=== PATIENT | female | born 1980 | race Caucasian/White ===

== ENCOUNTER 2020-08-27 19:19 | Emergency (ER) | payer OTHER ==
[~2020-08-27 19:19] MED LIST: WARF-31 PO
[2020-08-27 21:53] VITALS: BP 121/87
== END 2020-08-27 23:04 | disposition left against medical advice (07) ==
LOC: ER 19:19
DX: R43.8 Other disturbances of smell and taste (principal); Z53.21 Procedure and treatment not carried out due to patient leaving prior to being seen by health care provider

== ENCOUNTER 2020-08-29 10:45 | Emergency (ER) | payer OTHER ==
[~2020-08-29] VITALS: Ht 160 cm; Wt 79.0 kg
[2020-08-29 11:20] VITALS: BP 133/82
--- NOTE | 2020-08-29 11:36 | PHYS DOC ---
Past Medical History Past Medical History: Seizure Additional Past Medical Histor: BLOOD CLOTS (MEKA RIZVI Nieves DRYWALL STRIPPER HELPER) Past Surgical History: Other Additional Past Surgical Histo: CYST REMOVAL FROM VOICE BOX WITH REMOVAL OF VOCAL CORDS (MEKA RIZVI Nieves DRYWALL STRIPPER HELPER) Smoking Status: Current Every Day Smoker Alcohol Use: None Drug Use: None (MEKA RIZVI Nieves DRYWALL STRIPPER HELPER) General Adult EDM: Chief Complaint: OTHER COMPLAINTS HPI: HPI: Patient is a 39 year old female patient presenting to the ED today with loss of smell, symptoms began on Sunday which is 3 days ago. Daughter also has same symptoms. Patient denies any other complaints (ALVAROJerardoMEKA Pickett DRYWALL STRIPPER HELPER) Review of Systems: Review of Systems: Constitutional: Denies fever or chills. [] Eyes: Denies change in visual acuity. [] HENT: Reports loss of smell. Denies nasal congestion or sore throat. [] Respiratory: Denies cough or shortness of breath. [] Cardiovascular: Denies chest pain or edema. [] GI: Denies abdominal pain, nausea, vomiting, bloody stools or diarrhea. [] : Denies dysuria. [] Musculoskeletal: Denies back pain or joint pain. [] Integument: Denies rash. [] Neurologic: Denies headache, focal weakness or sensory changes. [] ] Psychiatric: Denies depression or anxiety. [] (ALVAROMEKA Kurtz DRYWALL STRIPPER HELPER) Heart Score: C/O Chest Pain: N/A Risk Factors: Risk Factors: DM, Current or recent (<one month) smoker, HTN, HLP, family history of CAD, obesity. Risk Scores: Score 0 - 3: 2.5% MACE over next 6 weeks - Discharge Home Score 4 - 6: 20.3% MACE over next 6 weeks - Admit for Clinical Observation Score 7 - 10: 72.7% MACE over next 6 weeks - Early Invasive Strategies (MEKA RIZVI DRYWALL STRIPPER HELPER) Allergies: Allergies: Allergies Coded Allergies Type Severity Reaction Last Updated Verified Penicillins Allergy Mild HIVES, TOLERATES CEFEPIME 12/12/16 Yes (MORISMEKA VICTOR DRYWALL STRIPPER HELPER) Physical Exam: PE: Constitutional: Well developed, well nourished, no acute distress, non-toxic appearance. [] HENT: Normocephalic, atraumatic, bilateral external ears normal, oropharynx moist, no oral exudates, nose normal. [] Eyes: PERRLA, EOMI, conjunctiva normal, no discharge. [] Neck: Normal range of motion, no tenderness, supple, no stridor. [] Cardiovascular:Heart rate regular rhythm, no murmur [] Lungs & Thorax: Bilateral breath sounds clear to auscultation [] Abdomen: Bowel sounds normal, soft, no tenderness, no masses, no pulsatile masses. [] Skin: Warm, dry, no erythema, no rash. [] Back: No tenderness, no CVA tenderness. [] Extremities: No tenderness, no cyanosis, no clubbing, ROM intact, no edema. [] Neurologic: Alert and oriented X 3, normal motor function, normal sensory function, no focal deficits noted. [] Psychologic: Affect normal, judgement normal, mood normal. [] (MEKA RIZVI APRN) Current Patient Data: Vital Signs: Vital Signs Date Time Temp Pulse Resp B/P (MAP) Pulse Ox O2 Delivery O2 Flow Rate FiO2 08/29/20 11:20 98.1 73 16 133/82 (98) 96 Room Air 98.1 (MEKA RIZVI APRN) EKG: EKG: [] (MEKA RIZVI APRN) Radiology/Procedures: Radiology/Procedures: [] (MEKA RIZVI APRN) Course & Med Decision Making: Course & Med Decision Making Pertinent Labs and Imaging studies reviewed. (See chart for details) This is a 39-year-old female patient presenting to the ED today with loss of smell, symptoms began 3 days ago. Patient was tested for COVID-19. Quarantine measures discussed. Return precautions provided. (MEKA RIZVI APRN) Dragon Disclaimer: Dragon Disclaimer: This electronic medical record was generated, in whole or in part, using a voice recognition dictation system. (MEKA RIZVI APRN) Departure Departure Impression: Primary Impression: Anosmia Disposition: 01 HOME / SELF CARE / HOMELESS Condition: STABLE Referrals: PROSPER SORENSON (PCP) follow up in 1-2 weeks Patient Instructions: Upper Respiratory Infection, Child Additional Instructions: You were tested for COVID-19, please quarantine yourself until you get results from us. Maintain good hand hygiene, you can take Tylenol or Motrin for pain or fever. Follow-up with your doctor in 1 to 2 weeks, come back to the ED at any point symptoms worsen Attending Signature Attending Signature I have reviewed the PA/MICROBIOLOGICAL LAB TECHNICIAN's note and plan of care. I was available for consultation as needed during the patient's visit in the emergency department. I agree with the clinical impression, plan, and disposition. (DELFIN VINCENT DO) MEKA RIZVI APRN Aug 29, 2020 11:35 DELFIN VINCENT DO Aug 29, 2020 16:52
--- NOTE | 2020-08-30 09:10 | NUR ---
IP: Informed pt of positive covid test and the need to quarantine for 10 days. Pt verbalized understanding.
== END 2020-08-29 11:45 | disposition home or self-care (01) ==
LOC: ER 10:45
DX: U07.1 COVID-19 (principal); R43.0 Anosmia; F17.200 Nicotine dependence, unspecified, uncomplicated; Z88.0 Allergy status to penicillin
CPT/HCPCS: 99283; U0003; U0005

== ENCOUNTER 2020-12-28 06:53 | Emergency (ER) | payer OTHER ==
[~2020-12-28] VITALS: Ht 160 cm; Wt 83.9 kg
--- NOTE | 2020-12-28 07:26 | PHYS DOC ---
Past Medical History Past Medical History: Seizure Additional Past Medical Histor: BLOOD CLOTS Past Surgical History: Other Additional Past Surgical Histo: CYST REMOVAL FROM VOICE BOX WITH REMOVAL OF VOCAL CORDS Smoking Status: Current Every Day Smoker Alcohol Use: None Drug Use: None General Adult EDM: Chief Complaint: ANIMAL BITE HPI: HPI: Patient is a 40 year old female who presents for evaluation of dog bite to her right forearm, as well as abrasions from scratches from dog claws of her right forearm. This injury occurred shortly prior to arrival. She was outside putting away bags of leaves in her yard. She reports that there are multiple animals, who are reportedly domestic animals, around the neighborhood frequently. She reports that a larger dog was attacking the smaller dog, so she reached in to try to "save" the smaller dog. She was bitten in the process. The dogs ran out. She is unsure of who this dog belonged to. He does not describe an unprovoked bite or injury. She is unsure of tetanus status. She denies numbness or tingling. No severe pain. No weakness. No other injuries reported. Nursing staff contacted police in the area. Review of Systems: Review of Systems: Constitutional: Denies fever or chills. [] Respiratory: Denies cough or shortness of breath. [] Cardiovascular: Denies chest pain or edema. [] GI: Denies abdominal pain, nausea, vomiting Musculoskeletal: Right forearm pain at injury sites. Integument: Abrasions of the dorsal right forearm, laceration from dog bite of the volar right forearm. Neurologic: Denies headache, focal weakness or sensory changes. [] Psychiatric: Anxiety as it pertains to current injury. [] Heart Score: C/O Chest Pain: No Risk Factors: Risk Factors: DM, Current or recent (<one month) smoker, HTN, HLP, family history of CAD, obesity. Risk Scores: Score 0 - 3: 2.5% MACE over next 6 weeks - Discharge Home Score 4 - 6: 20.3% MACE over next 6 weeks - Admit for Clinical Observation Score 7 - 10: 72.7% MACE over next 6 weeks - Early Invasive Strategies Allergies: Allergies: Allergies Coded Allergies Type Severity Reaction Last Updated Verified Penicillins Allergy Mild HIVES, TOLERATES CEFEPIME 12/12/16 Yes Physical Exam: PE: Constitutional: Well developed, well nourished, no acute distress, non-toxic appearance. [] HENT: Normocephalic, atraumatic Neck: Trachea is midline. Cardiovascular: +2 radial pulse of the right upper extremity, cap refill is brisk, warm and well perfused. Lungs & Thorax: Respirations are nonlabored. Skin: She has linear superficial abrasions on her mid, dorsal right forearm. She has an open, subcutaneous, round and jagged bite wound/laceration of her mid volar right forearm. Minimal oozing. No visible foreign body. No gross visible contamination. There is subcutaneous fat extruding from the wound. Extremities: Abrasions and laceration/bite and claw wounds of the right forearm, as detailed above. Compartments are soft. Full painless active and passive range of motion of the right forearm, right wrist, right elbow. No wrist drop. +2 radial pulse. Cap refill is brisk. No visible muscle belly involvement. No visible gross foreign body or visible gross contamination of the wound. There is mild soft tissue swelling around the lesions/wounds. No bony tenderness or bony deformity. No palpable crepitus or step-offs. Neurologic: Alert and oriented X 3, normal motor function, normal sensory function, no focal deficits noted. Full orthodontist assistant strength noted. Psychologic: She is mildly anxious but is cooperative. [] EKG: EKG: [] Radiology/Procedures: Radiology/Procedures: IMAGING REPORT Signed PATIENT: JAIR WALL ACCOUNT: [id number] : 1980 LOCATION: ER AGE: 40 SEX: F EXAM STATUS: REG ER ORD. PHYSICIAN: SELVIN LOVE DO REASON: dog bite, multiple puncture wounds and abrasions to forearm PROCEDURE: FOREARM RIGHT XR FOREARM_RIGHT 2 VIEWS DATE: 12/28/2020 7:42 AM INDICATION: dog bite, multiple puncture wounds and abrasions to forearm COMPARISON: None. FINDINGS: Bones: There is no evidence of acute fracture. No joint dislocation is noted. Miscellaneous: No radiopaque foreign body. IMPRESSION: No acute fracture or radiopaque foreign body. Electronically signed by: Debra Rios MD (12/28/2020 8:00 AM) [id number] DICTATED and SIGNED BY: DEBRA RIOS MD DATE: 12/28/20 [id number] Course & Med Decision Making: Course & Med Decision Making Pertinent Labs and Imaging studies reviewed. (See chart for details) P.o. doxycycline is given here. Tetanus is updated. X-ray reveals no fracture or foreign body. Her wounds are cleaned. I performed local anesthesia, wound debridement, cleansing and copious irrigation of her laceration/bite site. Though the wound is open, subcutaneous, given that it is a dog bite, I explained that I do not feel that it is appropriate to close this formally, even loosely. The wound is currently hemostatic. I explained that frequently dog bites are given antibiotic prophylaxis, especially in areas of slightly higher risk for wound infection, such as the extremities. I explained my recommendation to allow the wound to go by secondary intention. She understands this. I have given her instructions for home care and wound care. Strict return precautions are given. She verbalizes understanding. Abimael Disclaimer: Abimael Disclaimer: This electronic medical record was generated, in whole or in part, using a voice recognition dictation system. Departure Departure Impression: Primary Impression: Open wound of right forearm due to dog bite Additional Impression: Abrasion of right forearm Qualified Codes: S50.811A - Abrasion of right forearm, initial encounter Disposition: 01 HOME / SELF CARE / HOMELESS Condition: STABLE Referrals: NO PCP (PCP) Patient Instructions: Animal Bite, Laceration Care, Adult Additional Instructions: Take the full course of antibiotics. Keep the wound clean and dry, rinse with soapy water for cleaning. Pat dry. Return to the ER immediately for yellow- green wound drainage, severe pain, fever 100.4 or higher, severe redness, red streaks or any other concerns. Follow-up with your primary care doctor in the next 5 to 7 days for wound check. Scripts Doxycycline Hyclate (DOXYCYCLINE HYCLATE) 100 Mg Tablet 1 TAB PO BID for 7 Days, #14 TAB Prov: SELVIN LOVE DO 12/28/20 Hydrocodone Bit/Acetaminophen (HYDROCODONE-APAP 5-325 ) 1 Tab Tablet 1 TAB PO PRN Q6HRS PRN for PAIN, #15 TAB 0 Refills Prov: SELVIN LOVE DO 12/28/20 SELVIN LOVE DO Dec 28, 2020 07:26
[2020-12-28 07:38] VITALS: BP 124/71
[2020-12-28] MEDS ORDERED: LIDOCAINE 1%/EPI 1:100,000 20 ML VIAL. INJ ONE (07:45)
[2020-12-28] MEDS ORDERED: DOXYCYCLINE HYCLATE 100 MG TABLET PO ONE (07:45)
[2020-12-28] MEDS ORDERED: TETANUS AND DIPHTHERIA TOX/PF 0.5 ML DISP.SYRIN. VAX IM ONE (07:45)
--- NOTE | 2020-12-28 08:02 | RAD ---
XR FOREARM_RIGHT 2 VIEWS DATE: 12/28/2020 7:42 AM INDICATION: dog bite, multiple puncture wounds and abrasions to forearm COMPARISON: None. FINDINGS: Bones: There is no evidence of acute fracture. No joint dislocation is noted. Miscellaneous: No radiopaque foreign body. IMPRESSION: No acute fracture or radiopaque foreign body. Electronically signed by: Varinder Luna MD (12/28/2020 8:00 AM) [id number]
[2020-12-28] MEDS ORDERED: HYDR-2761 PO (08:23)
[2020-12-28] MEDS ORDERED: DOXY100T PO (08:23)
== END 2020-12-28 08:30 | disposition home or self-care (01) ==
LOC: ER 06:53
DX: S50.811A Abrasion of right forearm, initial encounter (principal); F17.200 Nicotine dependence, unspecified, uncomplicated; Z88.0 Allergy status to penicillin; W54.0XXA Bitten by dog, initial encounter; Y93.89 Activity, other specified; Y92.89 Other specified places as the place of occurrence of the external cause; Y99.8 Other external cause status
CPT/HCPCS: 73090; 90471; 90714; 99283; J3490; 12001

== ENCOUNTER 2021-05-23 17:37 | Inpatient (IN) | payer OTHER ==
[~2021-05-23] VITALS: Ht 160 cm; Wt 81.8 kg
[~2021-05-23 17:37] MED LIST changes: +DOXY100T PO; +HYDR-2761 PO
[2021-05-23] MEDS ORDERED: MORPHINE SULFATE 4 MG/ML INJ. IVP ONE (20:15)
[2021-05-23] MEDS ORDERED: RABIES VIRUS VACC PF 2.5 UNIT / 1 ML VIAL. VAX IM ONE (20:15)
[2021-05-23] MEDS ORDERED: VANCOMYCIN 1.5 GM in IV NORMAL SALINE 500ML BAG 500 ML IV ONE (20:15)
[2021-05-23] MEDS ORDERED: cefTRIAXone IV Push 1 GM VIAL. IVP ONE (20:15)
[2021-05-23] MEDS ORDERED: ONDANSETRON PF 4 MG/2 ML VIAL. IVP ONE (20:15)
[2021-05-23] MEDS ORDERED: IV NORMAL SALINE 1000ML BAG 1,000 ML IV ONE (20:15)
[2021-05-23] MEDS ORDERED: RABIES IMMUNE GLOBULIN PF 300 UNIT/ML 5ML VIAL VAX IM ONE (20:30)
[2021-05-23] MEDS ORDERED: ACETAMINOPHEN 500 MG TABLET PO ONE (20:45)
--- NOTE | 2021-05-23 20:53 | RAD ---
Left femur AP and lateral views. HISTORY: Infected dog bite AP and lateral views were taken of the left femur. There is no opaque foreign body. There is no abnor mal soft tissue gas. There is no fracture or bony destructive process in the left femur. There is a s tent in a iliac vessel on the left. IMPRESSION: 1. No opaque foreign body noted. 2. No abnormal gas noted in the soft tissues. 3. No acute osseous abnormality left femur. Electronically signed by: Oscar Sosa MD (05/23/2021 8:50 PM) [facility] [place]
--- NOTE | 2021-05-23 21:43 | RAD ---
Exam: Ultrasound bilateral lower extremity arterial duplex Indication: Vasculopathy, no palpable pulses Technique: Real-time grayscale and color Doppler images of the bilateral lower external were obtained by the department clinical product manager. Comparisons: None FINDINGS: Peak systolic velocities as follows: Right: OCEANOGRAPHER GEOLOGICAL: 179 DFA: 97 Proximal SFA: 97 Mid SFA: 123 Distal SFA: 122 Popliteal: 66 Proximal ASSISTANT STORE MANAGER: 67 Distal ASSISTANT STORE MANAGER: 57 Peroneal: 50 JOSE: 69 DPA: 44 Left: OCEANOGRAPHER GEOLOGICAL: 120 DFA: 75 Proximal SFA: 81 Mid SFA: 80 Distal SFA: 85 Popliteal: 59 Proximal ASSISTANT STORE MANAGER: 42 Distal ASSISTANT STORE MANAGER: 37 Peroneal: 48 JOSE: 73 DPA: 27 Triphasic waveforms noted throughout the bilateral lower extremities IMPRESSION: Patent bilateral lower extremity arterial vasculature without evidence of stenosis. Electronically signed by: Apolonia Gresham MD (05/23/2021 9:41 PM) [facility]
[2021-05-23 21:54] LABS: BASO # 0.1 x10^3/uL (0.0-0.2); BASO % 0 % (0-3); EOS % 0 % (0-3); HEMATOCRIT 41.9 % (36.0-47.0); HEMOGLOBIN 14.4 g/dL (12.0-15.5); LYMPH % 7 % (24-48); MEAN CORPUSCULAR HEMOGLOBIN 32 pg (25-35); MEAN CORPUSCULAR HGB CONC 34 g/dL (31-37); MEAN CORPUSCULAR VOLUME 93 fL (79-100); MONO # 0.6 x10^3/uL (0.0-1.1); MONO % 4 % (0-9); NEUT # 13.1 x10^3/uL (1.8-7.7); NEUT % 88 % (31-73); PLATELET COUNT 201 x10^3/uL (140-400); RED CELL DISTRIBUTION WIDTH 13.1 % (11.5-14.5); WHITE BLOOD COUNT 14.8 x10^3/uL (4.0-11.0)
[2021-05-23 22:04] LABS: CALCIUM 8.6 mg/dL (8.5-10.1); CREATININE 0.9 mg/dL (0.6-1.0); POTASSIUM 4.1 mmol/L (3.5-5.1); PROTHROMBIN TIME PATIENT 14.1 SEC (11.7-14.0)
[2021-05-23 22:10] LABS: ALBUMIN 3.8 g/dL (3.4-5.0); ALBUMIN/GLOBULIN RATIO 0.9 (1.0-1.7); C-REACTIVE PROTEIN 68.5 mg/L (0-3.3); TOTAL BILIRUBIN 0.5 mg/dL (0.2-1.0)
[2021-05-23 23:47] LABS: BARBITURATES NEG (NEG); BENZODIAZEPINES NEG (NEG); CANNABINOIDS NEG (NEG); COCAINE NEG (NEG); METHADONE NEG (NEG); OPIATES NEG (NEG); PHENCYCLIDINE NEG (NEG)
[2021-05-23 23:51] LABS: AMPHETAMINE/METHAMPHETAMINE NEG (NEG)
[2021-05-23 23:54] LABS: BACTERIA,URINE FEW /HPF (0-FEW); RBC,URINE OCC /HPF (0-2); WBC,URINE OCC /HPF (0-4)
[2021-05-24] MEDS ORDERED: RABIES IMMUNE GLOBULIN PF 300 UNIT / 1 ML VIAL. VAX IM ONE
--- NOTE | 2021-05-24 00:12 | PHYS DOC ---
Past Medical History Past Medical History: Seizure Additional Past Medical Histor: BLOOD CLOTS ,DVT'S AND PE'S Past Surgical History: Other Additional Past Surgical Histo: CYST REMOVAL FROM VOICE BOX WITH REMOVAL OF VOCAL CORDS Smoking Status: Current Every Day Smoker Alcohol Use: None Drug Use: None Adult General Chief Complaint Chief Complaint: ANIMAL BITE HPI HPI The patient is a 40-year-old female with a history of tobacco abuse and peripheral vascular disease who presents for evaluation of a dog bite to the left posterior distal thigh occurring yesterday. Dog was not known to the patient. Patient's tetanus is up-to-date. Discomfort to the area was initially minimal and patient did not think much of the injury and did not seek care yesterday but today woke up with significantly worsened discomfort, redness and swelling to the site. Febrile and mildly tachycardic here. No vomiting, nasal congestion/rhinorrhea, cough, sore throat, shortness of breath or chest pain of any kind, abdominal pain of any kind, flank pain, midline back pain, dysuria, hematuria, polyuria or oliguria, changes in bowel habits, weakness, numbness or tingling to distal legs. Review of Systems Review of Systems A 12 point review of systems was completed and was negative except where noted in HPI above. Current Medications Current Medications Current Medications Medications (Trade) Dose Ordered Sig/Emmy Start Time Stop Time Status Last Admin Dose Admin Acetaminophen (Tylenol) 1,000 mg 1X ONCE 05/23/21 20:45 05/23/21 20:46 DC Ceftriaxone Sodium (Rocephin) 1 gm 1X ONCE 05/23/21 20:15 05/23/21 20:22 DC Metronidazole 100 ml @ 100 mls/hr 1X ONCE 05/23/21 20:15 05/23/21 21:14 DC Morphine Sulfate (Morphine Sulfate) 4 mg 1X ONCE 05/23/21 20:15 05/23/21 20:22 DC 05/23/21 22:26 4 MG Ondansetron HCl (Zofran) 4 mg 1X ONCE 05/23/21 20:15 05/23/21 20:22 DC Rabies Immune Globulin (HyperRAB 300 UNIT/ML 5ML VIAL) 5 ml ONCE ONCE 05/23/21 20:30 05/23/21 20:31 DC Rabies Immune Globulin (HyperRAB 300 UNIT/ML VIAL) 1 ml ONCE ONCE 05/24/21 00:00 4/12/22 00:01 Rabies Vaccine (Imovax Rabies 2.5 Unit / ml) 1 ml ONCE ONCE 05/23/21 20:15 05/23/21 20:18 DC 05/23/21 23:54 1 ML Sodium Chloride 1,000 ml @ 1,000 mls/hr 1X ONCE 05/23/21 20:15 05/23/21 21:14 DC Vancomycin HCl 1.5 gm/Sodium Chloride 500 ml @ 250 mls/hr 1X ONCE 05/23/21 20:15 05/23/21 22:14 DC 05/23/21 22:40 250 MLS/HR Allergies Allergies Allergies Coded Allergies Type Severity Reaction Last Updated Verified Penicillins Allergy Mild HIVES, TOLERATES CEFEPIME 12/12/16 Yes Physical Exam Physical Exam 40-year-old female appearing nontoxic and in no acute distress. Head is normocephalic and atraumatic. Neck is supple and nontender. Oropharynx is moist. Lungs are clear to auscultation at all stations. There is a normal S1 and S2 without rubs or gallops and capillary refill is appropriate, less than 2 seconds globally. No murmurs. Abdomen is soft, nontender and nondistended. Skin is warm and dry without cyanosis, clubbing or edema. Psychiatrically, the patient demonstrates appropriate mood and affect and is alert. Evaluation of the extremities reveals large indurated erythematous tender area to the distal left posterior thigh with some central puncture wounds consistent with dog bite. Erythematous area is about 10 cm in diameter. No fluctuance suggestive of an abscess noted to the site. No discomfort with range of any joint of the affected extremity. All compartments of the thigh and lower leg are soft. No fusiform swelling of the thigh. Left lower extremity with normal capillary refill, less than 2 seconds, and normal strength and sensation but nonpalpable pulse. Current Patient Data Vital Signs Vital Signs Date Time Temp Pulse Resp B/P (MAP) Pulse Ox O2 Delivery O2 Flow Rate FiO2 05/23/21 22:26 14 93 Room Air 05/23/21 19:40 100.9 106 116/63 (80) 100.9 Lab Values Laboratory Tests Test 05/23/21 21:40 05/23/21 23:30 White Blood Count 14.8 x10^3/uL (4.0-11.0) H Red Blood Count 4.50 x10^6/uL (3.50-5.40) Hemoglobin 14.4 g/dL (12.0-15.5) Hematocrit 41.9 % (36.0-47.0) Mean Corpuscular Volume 93 fL (79-100) Mean Corpuscular Hemoglobin 32 pg (25-35) Mean Corpuscular Hemoglobin Concent 34 g/dL (31-37) Red Cell Distribution Width 13.1 % (11.5-14.5) Platelet Count 201 x10^3/uL (140-400) Neutrophils (%) (Auto) 88 % (31-73) H Lymphocytes (%) (Auto) 7 % (24-48) L Monocytes (%) (Auto) 4 % (0-9) Eosinophils (%) (Auto) 0 % (0-3) Basophils (%) (Auto) 0 % (0-3) Neutrophils # (Auto) 13.1 x10^3/uL (1.8-7.7) H Lymphocytes # (Auto) 1.0 x10^3/uL (1.0-4.8) Monocytes # (Auto) 0.6 x10^3/uL (0.0-1.1) Eosinophils # (Auto) 0.0 x10^3/uL (0.0-0.7) Basophils # (Auto) 0.1 x10^3/uL (0.0-0.2) Platelet Estimate Pending Erythrocyte Sedimentation Rate 20 (0-25) Prothrombin Time 14.1 SEC (11.7-14.0) H Prothrombin Time INR 1.1 (0.8-1.1) Activated Partial Thromboplast Time 32 SEC (24-38) Sodium Level 137 mmol/L (136-145) Potassium Level 4.1 mmol/L (3.5-5.1) Chloride Level 102 mmol/L (98-107) Carbon Dioxide Level 23 mmol/L (21-32) Anion Gap 12 (6-14) Blood Urea Nitrogen 14 mg/dL (7-20) Creatinine 0.9 mg/dL (0.6-1.0) Estimated GFR (Cockcroft-Gault) 69.0 BUN/Creatinine Ratio 16 (6-20) Glucose Level 89 mg/dL (70-99) Lactic Acid Level 1.1 mmol/L (0.4-2.0) Calcium Level 8.6 mg/dL (8.5-10.1) Total Bilirubin 0.5 mg/dL (0.2-1.0) Aspartate Amino Transferase (AST) 16 U/L (15-37) Alanine Aminotransferase (ALT) 17 U/L (14-59) Alkaline Phosphatase 66 U/L (46-116) C-Reactive Protein, Quantitative 68.5 mg/L (0-3.3) H Total Protein 8.0 g/dL (6.4-8.2) Albumin 3.8 g/dL (3.4-5.0) Albumin/Globulin Ratio 0.9 (1.0-1.7) L Procalcitonin < 0.10 ng/mL (0.00-0.10) Ethyl Alcohol Level < 10 mg/dL (0-10) Urine Collection Type Unknown Urine Color (Auto) Light yellow Urine Turbidity Clear Urine pH (Auto) 6.0 (<5.0-8.0) Urine Specific [place] 1.027 (1.000-1.030) Urine Protein (Auto) Negative mg/dL (Negative) Urine Glucose (Auto)(UA) Negative mg/dL (Negative) Urine Ketones (Auto) Negative mg/dL (Negative) Urine Blood (Auto) Small (Negative) Urine Nitrite Negative (Negative) Urine Bilirubin (Auto) Negative (Negative) Urine Urobilinogen (Auto) Normal mg/dL (Normal) Urine Leukocyte Esterase (Auto) Negative (Negative) Urine RBC Occ /HPF (0-2) Urine WBC Occ /HPF (0-4) Urine Squamous Epithelial Cells Mod /LPF Urine Bacteria Few /HPF (0-FEW) Urine Mucus Slight /LPF Urine Opiates Screen Neg (NEG) Urine Methadone Screen Neg (NEG) Urine Barbiturates Neg (NEG) Urine Phencyclidine Screen Neg (NEG) Urine Amphetamine/Methamphetamine Neg (NEG) Urine Benzodiazepines Screen Neg (NEG) Urine Cocaine Screen Neg (NEG) Urine Cannabinoids Screen Neg (NEG) Urine Ethyl Alcohol Neg (NEG) Laboratory Tests 05/23/21 21:40 Laboratory Tests 05/23/21 21:40 EKG EKG [] Radiology/Procedures Radiology/Procedures Left femur AP and lateral views. HISTORY: Infected dog bite AP and lateral views were taken of the left femur. There is no opaque foreign body. There is no abnormal soft tissue gas. There is no fracture or bony destructive process in the left femur. There is a stent in a iliac vessel on the left. IMPRESSION: 1. No opaque foreign body noted. 2. No abnormal gas noted in the soft tissues. 3. No acute osseous abnormality left femur. Electronically signed by: Oscar Sosa MD (05/23/2021 8:50 PM) [facility] DICTATED and SIGNED BY: OSCAR SOSA MD DATE: 05/23/212048 Exam: Ultrasound bilateral lower extremity arterial duplex Indication: Vasculopathy, no palpable pulses Technique: Real-time grayscale and color Doppler images of the bilateral lower external were obtained by the department desk pen set assembler. Comparisons: None FINDINGS: Peak systolic velocities as follows: Right: CUSTOMER EXPERIENCE MANAGER: 179 DFA: 97 Proximal SFA: 97 Mid SFA: 123 Distal SFA: 122 Popliteal: 66 Proximal GREASE BUFFER: 67 Distal GREASE BUFFER: 57 Peroneal: 50 JOSE: 69 DPA: 44 Left: CUSTOMER EXPERIENCE MANAGER: 120 DFA: 75 Proximal SFA: 81 Mid SFA: 80 Distal SFA: 85 Popliteal: 59 Proximal GREASE BUFFER: 42 Distal GREASE BUFFER: 37 Peroneal: 48 JOSE: 73 DPA: 27 Triphasic waveforms noted throughout the bilateral lower extremities IMPRESSION: Patent bilateral lower extremity arterial vasculature without evidence of stenosis. Electronically signed by: Apolonia Irizarry MD (05/23/2021 9:41 PM) [facility] DICTATED and SIGNED BY: APOLONIA IRIZARRY MD DATE: 05/23/212133 Course & Med Decision Making Course & Med Decision Making Work-up as above. Patient septic from dog bite yesterday. Compartments of the affected extremity are all soft. Arterial Doppler studies unremarkable to BLEs. Patient has received rabies immunoglobulin and first vaccination. Given rapidly enlarging area of soft tissue infection associated with a dog bite sustained yesterday in this vasculopathic smoker, have covered with vancomycin, Rocephin and Flagyl (PCN allergy so no Augmentin) and will bring in for further care. Dr. Olivas graciously accepts. Abimael Disclaimer Abimael Disclaimer This electronic medical record was generated, in whole or in part, using a voice recognition dictation system. Departure Departure Impression: Primary Impression: Cellulitis of left thigh Additional Impressions: Acute sepsis Dog bite of left thigh with infection Disposition: ADMITTED INPATIENT Condition: GUARDED Referrals: NO PCP (PCP) Problem Qualifiers Additional Impressions: Dog bite of left thigh with infection Encounter type: initial encounter Qualified Codes: S71.152A - Open bite, left thigh, initial encounter; L08.9 - Local infection of the skin and subcutaneous tissue, unspecified; W54.0XXA - Bitten by dog, initial encounter DIVYA BOURGEOIS MD May 24, 2021 00:12
[2021-05-24] MEDS ORDERED: ONDANSETRON PF 4 MG/2 ML VIAL. IVP PRN ×2 (00:15→14:15)
[2021-05-24 00:25] LABS: U PREG PATIENT NEGATIVE (NEG)
[2021-05-24] MEDS ORDERED: KETOROLAC 15 MG/ML VIAL. IVP ONE (00:30)
[2021-05-24] MEDS ORDERED: MORPHINE SULFATE 2 MG/ML INJ. IVP ONE (00:30)
[2021-05-24] MEDS: IV NORMAL SALINE 1000ML BAG 1,000 ML IV SCH ×3 (00:30→23:10)
[2021-05-24] MEDS ORDERED: cefTRIAXone IV Push 1 GM VIAL. IVP ONE (00:47)
[2021-05-24 02:15] VITALS: BP 92/59
[2021-05-24] MEDS: MORPHINE SULFATE 2 MG/ML INJ. IVP PRN ×4 (02:59→21:05)
[2021-05-24 07:00] VITALS: BP 101/61
--- NOTE | 2021-05-24 09:55 | NUR ---
SW following. Discussed with RN, pt from home, room air, regular diet. Surgery following. RN advised no SW needs at this time. SW will continue to follow.
--- NOTE | 2021-05-24 10:14 | PDOC2 ---
CONSULT Date of Consult Date of Consult DATE: 05/24/21 TIME: 10:02 Reason for Consult Reason for Consult: cellulitis Referring Physician Referring Physician: ER Identification/Chief Complaint Chief Complaint dog bite Source Source: Chart review, Patient History of Present Illness Reason for Visit: reported dog bite injury 2 days ago. Yesterday became more red, painful. Some drainage had been noted. She is on coumadin for PE hx, she is a smoker. Started rabies vaccine Past Medical History Pulmonary: Pulmonary embolus Heme/Onc: Other (DVT) Past Surgical History Past Surgical History: No pertinent history Family History Family History: Other (noncontributory to current illness ) Social History 1 pack per day ALCOHOL: none Drugs: None Lives: with Family Current Problem List Problem List Problems Medical Problems: (1) Acute sepsis Status: Acute (2) Cellulitis of left thigh Status: Acute (3) Dog bite of left thigh with infection Status: Acute Current Medications Current Medications Current Medications Rabies Vaccine (Imovax Rabies 2.5 Unit / ml) 1 ml ONCE ONCE VAX IM Last administered on 05/23/21at 23:54; Start 05/23/21 at 20:15; Stop 05/23/21 at 20:18; Status DC Rabies Immune Globulin (HyperRAB 300 UNIT/ML 5ML VIAL) 5 ml ONCE ONCE VAX IM Last administered on 05/24/21at 00:03; Start 05/23/21 at 20:30; Stop 05/23/21 at 20:31; Status DC Sodium Chloride 1,000 ml @ 1,000 mls/hr 1X ONCE IV Last administered on 05/24/21at 00:35; Start 05/23/21 at 20:15; Stop 05/23/21 at 21:14; Status DC Morphine Sulfate (Morphine Sulfate) 4 mg 1X ONCE IVP Last administered on 05/23/21at 22:26; Start 05/23/21 at 20:15; Stop 05/23/21 at 20:22; Status DC Ondansetron HCl (Zofran) 4 mg 1X ONCE IVP Last administered on 05/24/21at 00:34; Start 05/23/21 at 20:15; Stop 05/23/21 at 20:22; Status DC Vancomycin HCl 1.5 gm/Sodium Chloride 500 ml @ 250 mls/hr 1X ONCE IV Last administered on 05/23/21at 22:40; Start 05/23/21 at 20:15; Stop 05/23/21 at 22:14; Status DC Ceftriaxone Sodium (Rocephin) 1 gm 1X ONCE IVP Last administered on 05/24/21at 00:48; Start 05/23/21 at 20:15; Stop 05/23/21 at 20:22; Status DC Metronidazole 100 ml @ 100 mls/hr 1X ONCE IV Last administered on 05/24/21at 00:34; Start 05/23/21 at 20:15; Stop 05/23/21 at 21:14; Status DC Acetaminophen (Tylenol) 1,000 mg 1X ONCE PO ; Start 05/23/21 at 20:45; Stop 05/23/21 at 20:46; Status DC Rabies Immune Globulin (HyperRAB 300 UNIT/ML VIAL) 1 ml ONCE ONCE VAX IM Last administered on 05/24/21at 00:02; Start 05/24/21 at 00:00; Stop 05/24/21 at 00 :01; Status DC Ondansetron HCl (Zofran) 4 mg PRN Q8HRS PRN IVP NAUSEA/VOMITING 1ST CHOICE; Start 05/24/21 at 00:15; Stop 05/25/21 at 00:14 Morphine Sulfate (Morphine Sulfate) 2 mg PRN Q2HR PRN IVP SEVERE PAIN 7-10 Last administered on 05/24/21at 07:37; Start 05/24/21 at 00:15; Stop 05/25/21 at 00:14 Sodium Chloride 1,000 ml @ 100 mls/hr Q10H IV Last administered on 05/24/21at 09:41; Start 05/24/21 at 00:30; Stop 05/25/21 at 00:29 Morphine Sulfate (Morphine Sulfate) 2 mg 1X ONCE IVP Last administered on 05/24/21at 00:33; Start 05/24/21 at 00:30; Stop 05/24/21 at 00:31; Status DC Ketorolac Tromethamine (Toradol 15mg Vial) 15 mg 1X ONCE IVP Last administered on 05/24/21at 00:34; Start 05/24/21 at 00:30; Stop 05/24/21 at 00:31; Status DC Ceftriaxone Sodium (Rocephin) 1 gm STK-MED ONCE IVP ; Start 05/24/21 at 00:47; Stop 05/24/21 at 00:47; Status DC Active Scripts Active Doxycycline Hyclate 100 Mg Tablet 1 Tab PO BID 7 Days Hydrocodone-Apap 5-325 (Hydrocodone Bit/Acetaminophen) 1 Tab Tablet 1 Tab PO PRN Q6HRS PRN Reported Warfarin Sodium 5 Mg Tablet Unknown Dose PO DAILY Allergies Allergies: Coded Allergies: Penicillins (Verified Allergy, Mild, HIVES, TOLERATES CEFEPIME, 12/12/16) ROS General: YES: Other (low grade fevers ) PSYCHOLOGICAL ROS: No: Anxiety Eyes: No Blurry vision, No Double vision HEENT: No: Heacaches, Sore Throat Hematological and Lymphatic: YES: Bleeding Problems, Blood Clots Respiratory: No: Cough, Shortness of breath Cardiovascular: No Chest Pain, No Palpitations Gastrointestinal: No Nausea, No Vomiting, No Abdominal Pain Genitourinary: No Hematuria Musculoskeletal: Yes Joint Pain, Yes Muscle Pain Neurological: Yes Impaired Coord/balance; No Numbness/Tingling Skin: Yes Other (see hpi) Physical Exam General: Alert, Oriented X3, Cooperative HEENT: Atraumatic, PERRLA Lungs: Clear to auscultation, Normal air movement Heart: Regular rate, Normal S1, Normal S2 Abdomen: Soft, No tenderness, No hepatosplenomegaly Extremities: No clubbing, No cyanosis Skin: Other (left inner/posterior thigh with erythema, induration, tenderness, central area of darker tissue, no overt eschar, noted punture wounds ) Neuro: Normal speech, Sensation intact Psych/Mental Status: Mental status NL, Mood NL MUSCULOSKELETAL: No deformity, No swelling Vitals VITALS Vital Signs Date Time Temp Pulse Resp B/P (MAP) Pulse Ox O2 Delivery O2 Flow Rate FiO2 05/24/21 08:07 Room Air 05/24/21 07:00 99.0 83 22 101/61 (74) 96 99.0 Labs Labs Laboratory Tests Test 05/23/21 21:40 05/23/21 23:30 05/24/21 00:01 White Blood Count 14.8 x10^3/uL (4.0-11.0) Red Blood Count 4.50 x10^6/uL (3.50-5.40) Hemoglobin 14.4 g/dL (12.0-15.5) Hematocrit 41.9 % (36.0-47.0) Mean Corpuscular Volume 93 fL (79-100) Mean Corpuscular Hemoglobin 32 pg (25-35) Mean Corpuscular Hemoglobin Concent 34 g/dL (31-37) Red Cell Distribution Width 13.1 % (11.5-14.5) Platelet Count 201 x10^3/uL (140-400) Neutrophils (%) (Auto) 88 % (31-73) Lymphocytes (%) (Auto) 7 % (24-48) Monocytes (%) (Auto) 4 % (0-9) Eosinophils (%) (Auto) 0 % (0-3) Basophils (%) (Auto) 0 % (0-3) Neutrophils # (Auto) 13.1 x10^3/uL (1.8-7.7) Lymphocytes # (Auto) 1.0 x10^3/uL (1.0-4.8) Monocytes # (Auto) 0.6 x10^3/uL (0.0-1.1) Eosinophils # (Auto) 0.0 x10^3/uL (0.0-0.7) Basophils # (Auto) 0.1 x10^3/uL (0.0-0.2) Erythrocyte Sedimentation Rate 20 (0-25) Prothrombin Time 14.1 SEC (11.7-14.0) Prothromb Time International Ratio 1.1 (0.8-1.1) Activated Partial Thromboplast Time 32 SEC (24-38) Sodium Level 137 mmol/L (136-145) Potassium Level 4.1 mmol/L (3.5-5.1) Chloride Level 102 mmol/L (98-107) Carbon Dioxide Level 23 mmol/L (21-32) Anion Gap 12 (6-14) Blood Urea Nitrogen 14 mg/dL (7-20) Creatinine 0.9 mg/dL (0.6-1.0) Estimated GFR (Cockcroft-Gault) 69.0 BUN/Creatinine Ratio 16 (6-20) Glucose Level 89 mg/dL (70-99) Lactic Acid Level 1.1 mmol/L (0.4-2.0) Calcium Level 8.6 mg/dL (8.5-10.1) Total Bilirubin 0.5 mg/dL (0.2-1.0) Aspartate Amino Transf (AST/SGOT) 16 U/L (15-37) Alanine Aminotransferase (ALT/SGPT) 17 U/L (14-59) Alkaline Phosphatase 66 U/L (46-116) C-Reactive Protein, Quantitative 68.5 mg/L (0-3.3) Total Protein 8.0 g/dL (6.4-8.2) Albumin 3.8 g/dL (3.4-5.0) Albumin/Globulin Ratio 0.9 (1.0-1.7) Procalcitonin < 0.10 ng/mL (0.00-0.10) Ethyl Alcohol Level < 10 mg/dL (0-10) Urine Collection Type Unknown Urine Color (Auto) Light yellow Urine Turbidity Clear Urine pH (Auto) 6.0 (<5.0-8.0) Urine Specific [place] 1.027 (1.000-1.030) Urine Protein (Auto) Negative mg/dL (Negative) Urine Glucose (Auto)(UA) Negative mg/dL (Negative) Urine Ketones (Auto) Negative mg/dL (Negative) Urine Blood (Auto) Small (Negative) Urine Nitrite Negative (Negative) Urine Bilirubin (Auto) Negative (Negative) Urine Urobilinogen (Auto) Normal mg/dL (Normal) Urine Leukocyte Esterase (Auto) Negative (Negative) Urine RBC Occ /HPF (0-2) Urine WBC Occ /HPF (0-4) Urine Squamous Epithelial Cells Mod /LPF Urine Bacteria Few /HPF (0-FEW) Urine Mucus Slight /LPF Urine Opiates Screen Neg (NEG) Urine Methadone Screen Neg (NEG) Urine Barbiturates Neg (NEG) Urine Phencyclidine Screen Neg (NEG) Urine Amphetamine/Methamphetamine Neg (NEG) Urine Benzodiazepines Screen Neg (NEG) Urine Cocaine Screen Neg (NEG) Urine Cannabinoids Screen Neg (NEG) Urine Ethyl Alcohol Neg (NEG) Urine Test Negative (NEG) Laboratory Tests Test 05/23/21 21:40 05/23/21 23:30 05/24/21 00:01 White Blood Count 14.8 x10^3/uL (4.0-11.0) Red Blood Count 4.50 x10^6/uL (3.50-5.40) Hemoglobin 14.4 g/dL (12.0-15.5) Hematocrit 41.9 % (36.0-47.0) Mean Corpuscular Volume 93 fL (79-100) Mean Corpuscular Hemoglobin 32 pg (25-35) Mean Corpuscular Hemoglobin Concent 34 g/dL (31-37) Red Cell Distribution Width 13.1 % (11.5-14.5) Platelet Count 201 x10^3/uL (140-400) Neutrophils (%) (Auto) 88 % (31-73) Lymphocytes (%) (Auto) 7 % (24-48) Monocytes (%) (Auto) 4 % (0-9) Eosinophils (%) (Auto) 0 % (0-3) Basophils (%) (Auto) 0 % (0-3) Neutrophils # (Auto) 13.1 x10^3/uL (1.8-7.7) Lymphocytes # (Auto) 1.0 x10^3/uL (1.0-4.8) Monocytes # (Auto) 0.6 x10^3/uL (0.0-1.1) Eosinophils # (Auto) 0.0 x10^3/uL (0.0-0.7) Basophils # (Auto) 0.1 x10^3/uL (0.0-0.2) Erythrocyte Sedimentation Rate 20 (0-25) Prothrombin Time 14.1 SEC (11.7-14.0) Prothromb Time International Ratio 1.1 (0.8-1.1) Activated Partial Thromboplast Time 32 SEC (24-38) Sodium Level 137 mmol/L (136-145) Potassium Level 4.1 mmol/L (3.5-5.1) Chloride Level 102 mmol/L (98-107) Carbon Dioxide Level 23 mmol/L (21-32) Anion Gap 12 (6-14) Blood Urea Nitrogen 14 mg/dL (7-20) Creatinine 0.9 mg/dL (0.6-1.0) Estimated GFR (Cockcroft-Gault) 69.0 BUN/Creatinine Ratio 16 (6-20) Glucose Level 89 mg/dL (70-99) Lactic Acid Level 1.1 mmol/L (0.4-2.0) Calcium Level 8.6 mg/dL (8.5-10.1) Total Bilirubin 0.5 mg/dL (0.2-1.0) Aspartate Amino Transf (AST/SGOT) 16 U/L (15-37) Alanine Aminotransferase (ALT/SGPT) 17 U/L (14-59) Alkaline Phosphatase 66 U/L (46-116) C-Reactive Protein, Quantitative 68.5 mg/L (0-3.3) Total Protein 8.0 g/dL (6.4-8.2) Albumin 3.8 g/dL (3.4-5.0) Albumin/Globulin Ratio 0.9 (1.0-1.7) Procalcitonin < 0.10 ng/mL (0.00-0.10) Ethyl Alcohol Level < 10 mg/dL (0-10) Urine Collection Type Unknown Urine Color (Auto) Light yellow Urine Turbidity Clear Urine pH (Auto) 6.0 (<5.0-8.0) Urine Specific [place] 1.027 (1.000-1.030) Urine Protein (Auto) Negative mg/dL (Negative) Urine Glucose (Auto)(UA) Negative mg/dL (Negative) Urine Ketones (Auto) Negative mg/dL (Negative) Urine Blood (Auto) Small (Negative) Urine Nitrite Negative (Negative) Urine Bilirubin (Auto) Negative (Negative) Urine Urobilinogen (Auto) Normal mg/dL (Normal) Urine Leukocyte Esterase (Auto) Negative (Negative) Urine RBC Occ /HPF (0-2) Urine WBC Occ /HPF (0-4) Urine Squamous Epithelial Cells Mod /LPF Urine Bacteria Few /HPF (0-FEW) Urine Mucus Slight /LPF Urine Opiates Screen Neg (NEG) Urine Methadone Screen Neg (NEG) Urine Barbiturates Neg (NEG) Urine Phencyclidine Screen Neg (NEG) Urine Amphetamine/Methamphetamine Neg (NEG) Urine Benzodiazepines Screen Neg (NEG) Urine Cocaine Screen Neg (NEG) Urine Cannabinoids Screen Neg (NEG) Urine Ethyl Alcohol Neg (NEG) Urine Test Negative (NEG) Assessment/Plan Assessment/Plan cellulitis, dog bite, wound HR, temps improved close observation of wound continue abx MARIA LUZ RIVERO MANAGER CONTACT May 24, 2021 10:14
[2021-05-24 11:00] VITALS: BP 102/58
[2021-05-24] MEDS ORDERED: diphenhydrAMINE 50 MG/ML VIAL IVP PRN (13:30)
[2021-05-24] MEDS ORDERED: HYDROcodone/APAP 7.5/325MG 1 TAB TABLET PO PRN (14:00)
[2021-05-24] MEDS ORDERED: HYDROcodone/APAP 10/325 1 TAB TABLET PO PRN (14:00)
[2021-05-24] MEDS ORDERED: HYDROcodone/APAP 5/325MG 1 TAB TABLET PO PRN (14:00)
--- NOTE | 2021-05-24 14:09 | PDOC1 ---
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 She states that the dog was unfamiliar to her and unsure if it was wearing a collar. Since that time she reports worsening pain and erythema, which prompted her v isit to the ED. labs admission showed WBC 14.8, CRP 68.5. She was treated with rabies vaccination, IV Rocephin, IV metronidazole, and IV vancomycin. Upon my evaluation she does note improvement in erythema, with still complains of pain. She does have a reported allergy to penicillin, but states her allergy is a rash that her mother told her she had as a child. She also notes a history of recurrent PEs and not on warfarin. Patient has been admitted for further medical management. Past Medical History Pulmonary: Pulmonary embolus Heme/Onc: Other (DVT) Past Surgical History Past Surgical History System vocal cord removed, stents to leg Past Surgical History: Other Family History Family History PEs, CAD Social History Smoke: 1 pack per day ALCOHOL: none Drugs: None Current Problem List Problem List Problems Medical Problems: (1) Acute sepsis Status: Acute (2) Cellulitis of left thigh Status: Acute (3) Dog bite of left thigh with infection Status: Acute Current Medications Current Medications Current Medications Rabies Vaccine (Imovax Rabies 2.5 Unit / ml) 1 ml ONCE ONCE VAX IM Last administered on 05/23/21at 23:54; Start 05/23/21 at 20:15; Stop 05/23/21 at 20:18; Status DC Rabies Immune Globulin (HyperRAB 300 UNIT/ML 5ML VIAL) 5 ml ONCE ONCE VAX IM Last administered on 05/24/21at 00:03; Start 05/23/21 at 20:30; Stop 05/23/21 at 20:31; Status DC Sodium Chloride 1,000 ml @ 1,000 mls/hr 1X ONCE IV Last administered on 05/24/21at 00:35; Start 05/23/21 at 20:15; Stop 05/23/21 at 21:14; Status DC Morphine Sulfate (Morphine Sulfate) 4 mg 1X ONCE IVP Last administered on 05/23/21at 22:26; Start 05/23/21 at 20:15; Stop 05/23/21 at 20:22; Status DC Ondansetron HCl (Zofran) 4 mg 1X ONCE IVP Last administered on 05/24/21at 00:34; Start 05/23/21 at 20:15; Stop 05/23/21 at 20:22; Status DC Vancomycin HCl 1.5 gm/Sodium Chloride 500 ml @ 250 mls/hr 1X ONCE IV Last administered on 05/23/21at 22:40; Start 05/23/21 at 20:15; Stop 05/23/21 at 22:14; Status DC Ceftriaxone Sodium (Rocephin) 1 gm 1X ONCE IVP Last administered on 05/24/21at 00:48; Start 05/23/21 at 20:15; Stop 05/23/21 at 20:22; Status DC Metronidazole 100 ml @ 100 mls/hr 1X ONCE IV Last administered on 05/24/21at 00:34; Start 05/23/21 at 20:15; Stop 05/23/21 at 21:14; Status DC Acetaminophen (Tylenol) 1,000 mg 1X ONCE PO ; Start 05/23/21 at 20:45; Stop 05/23/21 at 20:46; Status DC Rabies Immune Globulin (HyperRAB 300 UNIT/ML VIAL) 1 ml ONCE ONCE VAX IM Last administered on 05/24/21at 00:02; Start 05/24/21 at 00:00; Stop 05/24/21 at 00:01; Status DC Ondansetron HCl (Zofran) 4 mg PRN Q8HRS PRN IVP NAUSEA/VOMITING 1ST CHOICE; Start 05/24/21 at 00:15; Stop 05/25/21 at 00:14 Morphine Sulfate (Morphine Sulfate) 2 mg PRN Q2HR PRN IVP SEVERE PAIN 7-10 Last administered on 05/24/21at 12:47; Start 05/24/21 at 00:15; Stop 05/25/21 at 00:14 Sodium Chloride 1,000 ml @ 100 mls/hr Q10H IV Last administered on 05/24/21at 09:41; Start 05/24/21 at 00:30; Stop 05/25/21 at 00:29 Morphine Sulfate (Morphine Sulfate) 2 mg 1X ONCE IVP Last administered on 05/24/21at 00:33; Start 05/24/21 at 00:30; Stop 05/24/21 at 00:31; Status DC Ketorolac Tromethamine (Toradol 15mg Vial) 15 mg 1X ONCE IVP Last administered on 05/24/21at 00:34; Start 05/24/21 at 00:30; Stop 05/24/21 at 00:31; Status DC Ceftriaxone Sodium (Rocephin) 1 gm STK-MED ONCE IVP ; Start 05/24/21 at 00:47; Stop 05/24/21 at 00:47; Status DC Active Scripts Active Doxycycline Hyclate 100 Mg Tablet 1 Tab PO BID 7 Days Hydrocodone-Apap 5-325 (Hydrocodone Bit/Acetaminophen) 1 Tab Tablet 1 Tab PO PRN Q6HRS PRN Reported Warfarin Sodium 5 Mg Tablet Unknown Dose PO DAILY Allergies Allergies: Coded Allergies: Penicillins (Verified Allergy, Mild, HIVES, TOLERATES CEFEPIME, 12/12/16) ROS Review of System GENERAL: No history of weight change, weakness or fevers. SKIN: Painful cellulitis to left thigh EYES: No blurred, double or loss of vision. NOSE AND THROAT: No history of nosebleeds, hoarseness or sore throat. HEART: Denies chest pain, denies palpitations. LUNGS: Denies cough, hemoptysis, wheezing or shortness of breath. GASTROINTESTINAL: Denies nausea, vomiting, abdominal pain. GENITOURINARY: Denies dysuria, frequency, urgency, hematuria. NEUROLOGIC: Denies history of numbness, tingling, tremor or weakness. PSYCHIATRIC: Denies anxiety, denies depression. ENDOCRINE: No history of heat or cold intolerance, polyuria or polydipsia. EXTREMITIES: Denies muscle weakness, joint pain, pain on walking or stiffness. Physical Exam Physical Exam General: Alert, Oriented X3, Cooperative, Mild distress HEENT: PERRLA, EOMI Lungs: Clear to auscultation, Normal air movement Heart: RRR, no murmurs Cardiovascular: S1, S2 Abdomen: Normal bowel sounds, Soft, No tenderness Extremities: No clubbing, No cyanosis Skin: >15 cm area erythema to left thigh with central puncture wounds Neuro: Normal speech, Normal tone, Sensation intact Psych/Mental Status: Mental status NL, Mood NL Vitals Vitals Vital Signs Date Time Temp Pulse Resp B/P (MAP) Pulse Ox O2 Delivery O2 Flow Rate FiO2 05/24/21 13:17 Room Air 05/24/21 11:00 98.3 101 22 102/58 (73) 96 98.3 Labs Labs Laboratory Tests Test 05/23/21 21:40 05/23/21 23:30 05/24/21 00:01 White Blood Count 14.8 x10^3/uL (4.0-11.0) Red Blood Count 4.50 x10^6/uL (3.50-5.40) Hemoglobin 14.4 g/dL (12.0-15.5) Hematocrit 41.9 % (36.0-47.0) Mean Corpuscular Volume 93 fL (79-100) Mean Corpuscular Hemoglobin 32 pg (25-35) Mean Corpuscular Hemoglobin Concent 34 g/dL (31-37) Red Cell Distribution Width 13.1 % (11.5-14.5) Platelet Count 201 x10^3/uL (140-400) Neutrophils (%) (Auto) 88 % (31-73) Lymphocytes (%) (Auto) 7 % (24-48) Monocytes (%) (Auto) 4 % (0-9) Eosinophils (%) (Auto) 0 % (0-3) Basophils (%) (Auto) 0 % (0-3) Neutrophils # (Auto) 13.1 x10^3/uL (1.8-7.7) Lymphocytes # (Auto) 1.0 x10^3/uL (1.0-4.8) Monocytes # (Auto) 0.6 x10^3/uL (0.0-1.1) Eosinophils # (Auto) 0.0 x10^3/uL (0.0-0.7) Basophils # (Auto) 0.1 x10^3/uL (0.0-0.2) Erythrocyte Sedimentation Rate 20 (0-25) Prothrombin Time 14.1 SEC (11.7-14.0) Prothromb Time International Ratio 1.1 (0.8-1.1) Activated Partial Thromboplast Time 32 SEC (24-38) Sodium Level 137 mmol/L (136-145) Potassium Level 4.1 mmol/L (3.5-5.1) Chloride Level 102 mmol/L (98-107) Carbon Dioxide Level 23 mmol/L (21-32) Anion Gap 12 (6-14) Blood Urea Nitrogen 14 mg/dL (7-20) Creatinine 0.9 mg/dL (0.6-1.0) Estimated GFR (Cockcroft-Gault) 69.0 BUN/Creatinine Ratio 16 (6-20) Glucose Level 89 mg/dL (70-99) Lactic Acid Level 1.1 mmol/L (0.4-2.0) Calcium Level 8.6 mg/dL (8.5-10.1) Total Bilirubin 0.5 mg/dL (0.2-1.0) Aspartate Amino Transf (AST/SGOT) 16 U/L (15-37) Alanine Aminotransferase (ALT/SGPT) 17 U/L (14-59) Alkaline Phosphatase 66 U/L (46-116) C-Reactive Protein, Quantitative 68.5 mg/L (0-3.3) Total Protein 8.0 g/dL (6.4-8.2) Albumin 3.8 g/dL (3.4-5.0) Albumin/Globulin Ratio 0.9 (1.0-1.7) Procalcitonin < 0.10 ng/mL (0.00-0.10) Ethyl Alcohol Level < 10 mg/dL (0-10) Urine Collection Type Unknown Urine Color (Auto) Light yellow Urine Turbidity Clear Urine pH (Auto) 6.0 (<5.0-8.0) Urine Specific [place] 1.027 (1.000-1.030) Urine Protein (Auto) Negative mg/dL (Negative) Urine Glucose (Auto)(UA) Negative mg/dL (Negative) Urine Ketones (Auto) Negative mg/dL (Negative) Urine Blood (Auto) Small (Negative) Urine Nitrite Negative (Negative) Urine Bilirubin (Auto) Negative (Negative) Urine Urobilinogen (Auto) Normal mg/dL (Normal) Urine Leukocyte Esterase (Auto) Negative (Negative) Urine RBC Occ /HPF (0-2) Urine WBC Occ /HPF (0-4) Urine Squamous Epithelial Cells Mod /LPF Urine Bacteria Few /HPF (0-FEW) Urine Mucus Slight /LPF Urine Opiates Screen Neg (NEG) Urine Methadone Screen Neg (NEG) Urine Barbiturates Neg (NEG) Urine Phencyclidine Screen Neg (NEG) Urine Amphetamine/Methamphetamine Neg (NEG) Urine Benzodiazepines Screen Neg (NEG) Urine Cocaine Screen Neg (NEG) Urine Cannabinoids Screen Neg (NEG) Urine Ethyl Alcohol Neg (NEG) Urine Test Negative (NEG) Laboratory Tests Test 05/23/21 21:40 05/23/21 23:30 05/24/21 00:01 White Blood Count 14.8 x10^3/uL (4.0-11.0) Red Blood Count 4.50 x10^6/uL (3.50-5.40) Hemoglobin 14.4 g/dL (12.0-15.5) Hematocrit 41.9 % (36.0-47.0) Mean Corpuscular Volume 93 fL (79-100) Mean Corpuscular Hemoglobin 32 pg (25-35) Mean Corpuscular Hemoglobin Concent 34 g/dL (31-37) Red Cell Distribution Width 13.1 % (11.5-14.5) Platelet Count 201 x10^3/uL (140-400) Neutrophils (%) (Auto) 88 % (31-73) Lymphocytes (%) (Auto) 7 % (24-48) Monocytes (%) (Auto) 4 % (0-9) Eosinophils (%) (Auto) 0 % (0-3) Basophils (%) (Auto) 0 % (0-3) Neutrophils # (Auto) 13.1 x10^3/uL (1.8-7.7) Lymphocytes # (Auto) 1.0 x10^3/uL (1.0-4.8) Monocytes # (Auto) 0.6 x10^3/uL (0.0-1.1) Eosinophils # (Auto) 0.0 x10^3/uL (0.0-0.7) Basophils # (Auto) 0.1 x10^3/uL (0.0-0.2) Erythrocyte Sedimentation Rate 20 (0-25) Prothrombin Time 14.1 SEC (11.7-14.0) Prothromb Time International Ratio 1.1 (0.8-1.1) Activated Partial Thromboplast Time 32 SEC (24-38) Sodium Level 137 mmol/L (136-145) Potassium Level 4.1 mmol/L (3.5-5.1) Chloride Level 102 mmol/L (98-107) Carbon Dioxide Level 23 mmol/L (21-32) Anion Gap 12 (6-14) Blood Urea Nitrogen 14 mg/dL (7-20) Creatinine 0.9 mg/dL (0.6-1.0) Estimated GFR (Cockcroft-Gault) 69.0 BUN/Creatinine Ratio 16 (6-20) Glucose Level 89 mg/dL (70-99) Lactic Acid Level 1.1 mmol/L (0.4-2.0) Calcium Level 8.6 mg/dL (8.5-10.1) Total Bilirubin 0.5 mg/dL (0.2-1.0) Aspartate Amino Transf (AST/SGOT) 16 U/L (15-37) Alanine Aminotransferase (ALT/SGPT) 17 U/L (14-59) Alkaline Phosphatase 66 U/L (46-116) C-Reactive Protein, Quantitative 68.5 mg/L (0-3.3) Total Protein 8.0 g/dL (6.4-8.2) Albumin 3.8 g/dL (3.4-5.0) Albumin/Globulin Ratio 0.9 (1.0-1.7) Procalcitonin < 0.10 ng/mL (0.00-0.10) Ethyl Alcohol Level < 10 mg/dL (0-10) Urine Collection Type Unknown Urine Color (Auto) Light yellow Urine Turbidity Clear Urine pH (Auto) 6.0 (<5.0-8.0) Urine Specific [place] 1.027 (1.000-1.030) Urine Protein (Auto) Negative mg/dL (Negative) Urine Glucose (Auto)(UA) Negative mg/dL (Negative) Urine Ketones (Auto) Negative mg/dL (Negative) Urine Blood (Auto) Small (Negative) Urine Nitrite Negative (Negative) Urine Bilirubin (Auto) Negative (Negative) Urine Urobilinogen (Auto) Normal mg/dL (Normal) Urine Leukocyte Esterase (Auto) Negative (Negative) Urine RBC Occ /HPF (0-2) Urine WBC Occ /HPF (0-4) Urine Squamous Epithelial Cells Mod /LPF Urine Bacteria Few /HPF (0-FEW) Urine Mucus Slight /LPF Urine Opiates Screen Neg (NEG) Urine Methadone Screen Neg (NEG) Urine Barbiturates Neg (NEG) Urine Phencyclidine Screen Neg (NEG) Urine Amphetamine/Methamphetamine Neg (NEG) Urine Benzodiazepines Screen Neg (NEG) Urine Cocaine Screen Neg (NEG) Urine Cannabinoids Screen Neg (NEG) Urine Ethyl Alcohol Neg (NEG) Urine Test Negative (NEG) Images Images PATIENT: JAIR WALL ACCOUNT: [id number] : 1980 LOCATION: ER AGE: 40 SEX: F EXAM STATUS: REG ER ORD. PHYSICIAN: DIVYA BOURGEOIS MD REASON: infected dog bite; evaluate for osteo / subq gas PROCEDURE: FEMUR LEFT 2 VIEW Left femur AP and lateral views. HISTORY: Infected dog bite AP and lateral views were taken of the left femur. There is no opaque foreign body. There is no abnormal soft tissue gas. There is no fracture or bony destructive process in the left femur. There is a stent in a iliac vessel on the left. IMPRESSION: 1. No opaque foreign body noted. 2. No abnormal gas noted in the soft tissues. 3. No acute osseous abnormality left femur. VTE Prophylaxis Ordered VTE Prophylaxis Devices: No VTE Pharmacological Prophylaxi: Yes Assessment/Plan Assessment/Plan Cellulitis to left thigh History of recurrent PEs Plan: Order IV Zosyn and pharmacy to dose Will closely monitor for rash or any signs of allergic reaction and change antibiotics if noted. Discussed this action with patient she is comfortable. Will ask pharmacy also dose warfarin for history of PEs, and prescribed on discharge as well Pain management Consultation placed to general surgery for concerns of compartment syndrome; recommend closely monitoring wound. FEN - Regular diet PPX - Warfarin FULL CODE Dispo - inpatient for above Justifications for Admission Other Justification HAKEEM CRUZ MD May 24, 2021 14:09
[2021-05-24] MEDS ORDERED: ZOLPIDEM 5 MG TABLET. PO PRN (14:15)
[2021-05-24] MEDS ORDERED: MAG HYDROX/ALUMINUM HYD/SIMETH 30 ML ORAL.SUSP PO PRN (14:15)
[2021-05-24] MEDS ORDERED: ENOXAPARIN 40 MG/0.4 ML SYRINGE. SQ SCH (14:15)
[2021-05-24] MEDS ORDERED: ACETAMINOPHEN 325 MG TABLET. PO PRN (14:15)
[2021-05-24] MEDS ORDERED: PIP/TAZO PER PHARMACY MC PRN (14:15)
[2021-05-24] MEDS ORDERED: CALCIUM CARBONATE 500 MG TAB.CHEW PO PRN (14:15)
[2021-05-24] MEDS ORDERED: MAGNESIUM HYDROXIDE 2,400 MG/30 ML ORAL.SUSP. PO PRN (14:15)
[2021-05-24] MEDS: PIPERACILLIN/TAZOBACTAM 3.375 GM in IV NORMAL SALINE 50ML 50 ML IV SCH ×2 (14:46→18:00)
[2021-05-24 15:00] VITALS: BP 94/65
[2021-05-24] MEDS ORDERED: WARFARIN 5 MG TABLET. PO ONE (16:00)
[2021-05-24] MEDS: HYDROcodone/APAP 7.5/325MG 1 TAB TABLET PO PRN (17:52)
[2021-05-24 19:25] VITALS: BP 87/55
[2021-05-24] MEDS: ENOXAPARIN 40 MG/0.4 ML SYRINGE. SQ SCH (19:28)
[2021-05-24 23:17] VITALS: BP 99/50
[2021-05-25] MEDS: HYDROcodone/APAP 7.5/325MG 1 TAB TABLET PO PRN ×4 (00:52→17:32)
[2021-05-25] MEDS: PIPERACILLIN/TAZOBACTAM 3.375 GM in IV NORMAL SALINE 50ML 50 ML IV SCH ×4 (00:54→17:32)
[2021-05-25 03:11] VITALS: BP 90/51
[2021-05-25 07:15] VITALS: BP 110/90
[2021-05-25 08:00] LABS: BASO % 0 % (0-3); EOS # 0.1 x10^3/uL (0.0-0.7); EOS % 1 % (0-3); HEMATOCRIT 35.3 % (36.0-47.0); HEMOGLOBIN 11.8 g/dL (12.0-15.5); LYMPH # 1.7 x10^3/uL (1.0-4.8); LYMPH % 20 % (24-48); MEAN CORPUSCULAR HEMOGLOBIN 32 pg (25-35); MEAN CORPUSCULAR HGB CONC 34 g/dL (31-37); MEAN CORPUSCULAR VOLUME 95 fL (79-100); MONO # 0.6 x10^3/uL (0.0-1.1); MONO % 7 % (0-9); NEUT # 6.2 x10^3/uL (1.8-7.7); NEUT % 72 % (31-73); PLATELET COUNT 164 x10^3/uL (140-400); RED BLOOD COUNT 3.71 x10^6/uL (3.50-5.40); RED CELL DISTRIBUTION WIDTH 13.1 % (11.5-14.5); WHITE BLOOD COUNT 8.6 x10^3/uL (4.0-11.0)
[2021-05-25 08:23] LABS: CALCIUM 7.8 mg/dL (8.5-10.1); CREATININE 0.8 mg/dL (0.6-1.0); POTASSIUM 3.5 mmol/L (3.5-5.1)
--- NOTE | 2021-05-25 09:36 | PDOC ---
PROGRESS NOTES Date of Service DATE: 05/25/21 TIME: 09:33 Subjective Subjective some gradual improvement Objective Objective Vital Signs Date Time Temp Pulse Resp B/P (MAP) Pulse Ox O2 Delivery O2 Flow Rate FiO2 05/25/21 07:15 98.3 75 18 110/90 (97) 93 Room Air 98.3 Intake and Output 05/25/21 07:00 Intake Total 1550 ml Output Total 0 ml Balance 1550 ml Intake Oral 1500 ml IV Total 50 ml Output Stool Total 0 ml # Voids 1 Physical Exam Abdomen: Soft, No tenderness Heart: Regular rate Extremities: No clubbing, Other (left thigh with erythema, no drainage, some central faint bluish discoloration, no necrosis as of now, no fluctuance) HEENT: Atraumatic Lungs: Clear to auscultation Neuro: Normal speech (chronic hoarse voice) Psych/Mental Status: Mental status NL Assessment Assessment Problems Medical Problems: (1) Acute sepsis Status: Acute (2) Cellulitis of left thigh Status: Acute (3) Dog bite of left thigh with infection Status: Acute Plan Plan of Care Continue with IV abx for cellulitis, may benefit from Vancomycin Comment Review of Relevant I have reviewed the following items otto (where applicable) has been applied. Labs Laboratory Tests Test 05/23/21 21:40 05/23/21 23:30 05/24/21 00:01 05/25/21 05:55 White Blood Count 14.8 x10^3/uL (4.0-11.0) 8.6 x10^3/uL (4.0-11.0) Red Blood Count 4.50 x10^6/uL (3.50-5.40) 3.71 x10^6/uL (3.50-5.40) Hemoglobin 14.4 g/dL (12.0-15.5) 11.8 g/dL (12.0-15.5) Hematocrit 41.9 % (36.0-47.0) 35.3 % (36.0-47.0) Mean Corpuscular Volume 93 fL (79-100) 95 fL (79-100) Mean Corpuscular Hemoglobin 32 pg (25-35) 32 pg (25-35) Mean Corpuscular Hemoglobin Concent 34 g/dL (31-37) 34 g/dL (31-37) Red Cell Distribution Width 13.1 % (11.5-14.5) 13.1 % (11.5-14.5) Platelet Count 201 x10^3/uL (140-400) 164 x10^3/uL (140-400) Neutrophils (%) (Auto) 88 % (31-73) 72 % (31-73) Lymphocytes (%) (Auto) 7 % (24-48) 20 % (24-48) Monocytes (%) (Auto) 4 % (0-9) 7 % (0-9) Eosinophils (%) (Auto) 0 % (0-3) 1 % (0-3) Basophils (%) (Auto) 0 % (0-3) 0 % (0-3) Neutrophils # (Auto) 13.1 x10^3/uL (1.8-7.7) 6.2 x10^3/uL (1.8-7.7) Lymphocytes # (Auto) 1.0 x10^3/uL (1.0-4.8) 1.7 x10^3/uL (1.0-4.8) Monocytes # (Auto) 0.6 x10^3/uL (0.0-1.1) 0.6 x10^3/uL (0.0-1.1) Eosinophils # (Auto) 0.0 x10^3/uL (0.0-0.7) 0.1 x10^3/uL (0.0-0.7) Basophils # (Auto) 0.1 x10^3/uL (0.0-0.2) 0.0 x10^3/uL (0.0-0.2) Erythrocyte Sedimentation Rate 20 (0-25) Prothrombin Time 14.1 SEC (11.7-14.0) 14.0 SEC (11.7-14.0) Prothromb Time International Ratio 1.1 (0.8-1.1) 1.1 (0.8-1.1) Activated Partial Thromboplast Time 32 SEC (24-38) Sodium Level 137 mmol/L (136-145) 138 mmol/L (136-145) Potassium Level 4.1 mmol/L (3.5-5.1) 3.5 mmol/L (3.5-5.1) Chloride Level 102 mmol/L (98-107) 108 mmol/L (98-107) Carbon Dioxide Level 23 mmol/L (21-32) 21 mmol/L (21-32) Anion Gap 12 (6-14) 9 (6-14) Blood Urea Nitrogen 14 mg/dL (7-20) 10 mg/dL (7-20) Creatinine 0.9 mg/dL (0.6-1.0) 0.8 mg/dL (0.6-1.0) Estimated GFR (Cockcroft-Gault) 69.0 79.0 BUN/Creatinine Ratio 16 (6-20) Glucose Level 89 mg/dL (70-99) 75 mg/dL (70-99) Lactic Acid Level 1.1 mmol/L (0.4-2.0) Calcium Level 8.6 mg/dL (8.5-10.1) 7.8 mg/dL (8.5-10.1) Total Bilirubin 0.5 mg/dL (0.2-1.0) Aspartate Amino Transf (AST/SGOT) 16 U/L (15-37) Alanine Aminotransferase (ALT/SGPT) 17 U/L (14-59) Alkaline Phosphatase 66 U/L (46-116) C-Reactive Protein, Quantitative 68.5 mg/L (0-3.3) Total Protein 8.0 g/dL (6.4-8.2) Albumin 3.8 g/dL (3.4-5.0) Albumin/Globulin Ratio 0.9 (1.0-1.7) Procalcitonin < 0.10 ng/mL (0.00-0.10) Ethyl Alcohol Level < 10 mg/dL (0-10) Urine Collection Type Unknown Urine Color (Auto) Light yellow Urine Turbidity Clear Urine pH (Auto) 6.0 (<5.0-8.0) Urine Specific [place] 1.027 (1.000-1.030) Urine Protein (Auto) Negative mg/dL (Negative) Urine Glucose (Auto)(UA) Negative mg/dL (Negative) Urine Ketones (Auto) Negative mg/dL (Negative) Urine Blood (Auto) Small (Negative) Urine Nitrite Negative (Negative) Urine Bilirubin (Auto) Negative (Negative) Urine Urobilinogen (Auto) Normal mg/dL (Normal) Urine Leukocyte Esterase (Auto) Negative (Negative) Urine RBC Occ /HPF (0-2) Urine WBC Occ /HPF (0-4) Urine Squamous Epithelial Cells Mod /LPF Urine Bacteria Few /HPF (0-FEW) Urine Mucus Slight /LPF Urine Opiates Screen Neg (NEG) Urine Methadone Screen Neg (NEG) Urine Barbiturates Neg (NEG) Urine Phencyclidine Screen Neg (NEG) Urine Amphetamine/Methamphetamine Neg (NEG) Urine Benzodiazepines Screen Neg (NEG) Urine Cocaine Screen Neg (NEG) Urine Cannabinoids Screen Neg (NEG) Urine Ethyl Alcohol Neg (NEG) Urine Test Negative (NEG) Laboratory Tests Test 05/25/21 05:55 White Blood Count 8.6 x10^3/uL (4.0-11.0) Red Blood Count 3.71 x10^6/uL (3.50-5.40) Hemoglobin 11.8 g/dL (12.0-15.5) Hematocrit 35.3 % (36.0-47.0) Mean Corpuscular Volume 95 fL (79-100) Mean Corpuscular Hemoglobin 32 pg (25-35) Mean Corpuscular Hemoglobin Concent 34 g/dL (31-37) Red Cell Distribution Width 13.1 % (11.5-14.5) Platelet Count 164 x10^3/uL (140-400) Neutrophils (%) (Auto) 72 % (31-73) Lymphocytes (%) (Auto) 20 % (24-48) Monocytes (%) (Auto) 7 % (0-9) Eosinophils (%) (Auto) 1 % (0-3) Basophils (%) (Auto) 0 % (0-3) Neutrophils # (Auto) 6.2 x10^3/uL (1.8-7.7) Lymphocytes # (Auto) 1.7 x10^3/uL (1.0-4.8) Monocytes # (Auto) 0.6 x10^3/uL (0.0-1.1) Eosinophils # (Auto) 0.1 x10^3/uL (0.0-0.7) Basophils # (Auto) 0.0 x10^3/uL (0.0-0.2) Prothrombin Time 14.0 SEC (11.7-14.0) Prothromb Time International Ratio 1.1 (0.8-1.1) Sodium Level 138 mmol/L (136-145) Potassium Level 3.5 mmol/L (3.5-5.1) Chloride Level 108 mmol/L (98-107) Carbon Dioxide Level 21 mmol/L (21-32) Anion Gap 9 (6-14) Blood Urea Nitrogen 10 mg/dL (7-20) Creatinine 0.8 mg/dL (0.6-1.0) Estimated GFR (Cockcroft-Gault) 79.0 Glucose Level 75 mg/dL (70-99) Calcium Level 7.8 mg/dL (8.5-10.1) Microbiology 05/23/21 Blood Culture - Preliminary, Resulted NO GROWTH AFTER 1 DAY Medications Current Medications Rabies Vaccine (Imovax Rabies 2.5 Unit / ml) 1 ml ONCE ONCE VAX IM Last administered on 05/23/21at 23:54; Start 05/23/21 at 20:15; Stop 05/23/21 at 20:18; Status DC Rabies Immune Globulin (HyperRAB 300 UNIT/ML 5ML VIAL) 5 ml ONCE ONCE VAX IM Last administered on 05/24/21at 00:03; Start 05/23/21 at 20:30; Stop 05/23/21 at 20:31; Status DC Sodium Chloride 1,000 ml @ 1,000 mls/hr 1X ONCE IV Last administered on 05/24/21at 00:35; Start 05/23/21 at 20:15; Stop 05/23/21 at 21:14; Status DC Morphine Sulfate (Morphine Sulfate) 4 mg 1X ONCE IVP Last administered on 05/23/21at 22:26; Start 05/23/21 at 20:15; Stop 05/23/21 at 20:22; Status DC Ondansetron HCl (Zofran) 4 mg 1X ONCE IVP Last administered on 05/24/21at 00:34; Start 05/23/21 at 20:15; Stop 05/23/21 at 20:22; Status DC Vancomycin HCl 1.5 gm/Sodium Chloride 500 ml @ 250 mls/hr 1X ONCE IV Last administered on 05/23/21at 22:40; Start 05/23/21 at 20:15; Stop 05/23/21 at 22:14; Status DC Ceftriaxone Sodium (Rocephin) 1 gm 1X ONCE IVP Last administered on 05/24/21at 00:48; Start 05/23/21 at 20:15; Stop 05/23/21 at 20:22; Status DC Metronidazole 100 ml @ 100 mls/hr 1X ONCE IV Last administered on 05/24/21at 00:34; Start 05/23/21 at 20:15; Stop 05/23/21 at 21:14; Status DC Acetaminophen (Tylenol) 1,000 mg 1X ONCE PO ; Start 05/23/21 at 20:45; Stop 05/23/21 at 20:46; Status DC Rabies Immune Globulin (HyperRAB 300 UNIT/ML VIAL) 1 ml ONCE ONCE VAX IM Last administered on 05/24/21at 00:02; Start 05/24/21 at 00:00; Stop 05/24/21 at 00:01; Status DC Ondansetron HCl (Zofran) 4 mg PRN Q8HRS PRN IVP NAUSEA/VOMITING 1ST CHOICE; Start 05/24/21 at 00:15; Stop 05/24/21 at 14:20; Status DC Morphine Sulfate (Morphine Sulfate) 2 mg PRN Q2HR PRN IVP SEVERE PAIN 7-10 Last administered on 05/24/21at 21:05; Start 05/24/21 at 00:15; Stop 05/25/21 at 00:14; Status DC Sodium Chloride 1,000 ml @ 100 mls/hr Q10H IV Last administered on 05/24/21at 23:10; Start 05/24/21 at 00:30; Stop 05/25/21 at 00:29; Status DC Morphine Sulfate (Morphine Sulfate) 2 mg 1X ONCE IVP Last administered on 05/24/21at 00:33; Start 05/24/21 at 00:30; Stop 05/24/21 at 00:31; Status DC Ketorolac Tromethamine (Toradol 15mg Vial) 15 mg 1X ONCE IVP Last administered on 05/24/21at 00:34; Start 05/24/21 at 00:30; Stop 05/24/21 at 00:31; Status DC Ceftriaxone Sodium (Rocephin) 1 gm STK-MED ONCE IVP ; Start 05/24/21 at 00:47; Stop 05/24/21 at 00:47; Status DC Diphenhydramine HCl (Benadryl) 25 mg PRN Q6HRS PRN IVP ITCHING; Start 05/24/21 at 13:30 Acetaminophen/ Hydrocodone Bitart (Lortab 7.5/325) 1 tab PRN Q6HRS PRN PO MODERATE PAIN (2nd Choice); Start 05/24/21 at 14:00 Acetaminophen/ Hydrocodone Bitart (Lortab 7.5/325) 2 tab PRN Q6HRS PRN PO SEVERE PAIN (1st Choice) Last administered on 05/25/21at 06:44; Start 05/24/21 at 14:00 Acetaminophen/ Hydrocodone Bitart (Lortab 5/325) 1 tab PRN Q4HRS PRN PO MODERATE PAIN (1st Choice); Start 05/24/21 at 14:00 Acetaminophen/ Hydrocodone Bitart (Lortab 10/325) 1 tab PRN Q6HRS PRN PO SEVERE PAIN (2nd Choice); Start 05/24/21 at 14:00 Piperacillin Sod/ Tazobactam Sod (Zosyn Per Pharmacy) 1 each PRN DAILY PRN MC SEE COMMENTS; Start 05/24/21 at 14:15 Warfarin Sodium (Coumadin Per Pharmacy) 1 each PRN DAILY PRN MC SEE COMMENTS; Start 05/24/21 at 14:15 Warfarin Sodium (Coumadin) 5 mg 1X WARF ONCE PO Last administered on 05/24/21at 19:24; Start 05/24/21 at 16:00; Stop 05/24/21 at 16:01; Status DC Piperacillin Sod/ Tazobactam Sod 3.375 gm/Sodium Chloride 50 ml @ 100 mls/hr Q6HRS IV Last administered on 05/25/21at 06:02; Start 05/24/21 at 14:30 Enoxaparin Sodium (Lovenox 40mg Syringe) 40 mg Q24H SQ Last administered on 05/24/21at 19:28; Start 05/24/21 at 16:00 Ondansetron HCl (Zofran) 4 mg PRN Q6HRS PRN IVP NAUSEA/VOMITING; Start 05/24/21 at 14:15 Al Hydroxide/Mg Hydroxide (Mylanta Plus Xs) 30 ml PRN Q3HRS PRN PO HEARTBURN / GAS; Start 05/24/21 at 14:15 Calcium Carbonate/ Glycine (Tums) 500 mg PRN Q3HRS PRN PO UPSET STOMACH; Start 05/24/21 at 14:15 Zolpidem Tartrate (Ambien) 5 mg PRN QHS PRN PO INSOMNIA, MAY REPEAT IN 1HR; Start 05/24/21 at 14:15 Oxycodone HCl (Roxicodone) 5 mg PRN Q3HRS PRN PO BREAKTHROUGH PAIN; Start 05/24/21 at 14:15 Acetaminophen (Tylenol) 650 mg PRN Q6HRS PRN PO Headaches, Temp > 101.5F; Start 05/24/21 at 14:15 Magnesium Hydroxide (Milk Of Magnesia) 2,400 mg PRN Q12HR PRN PO CONSTIPATION; Start 05/24/21 at 14:15 Enoxaparin Sodium (Lovenox 40mg Syringe) 40 mg Q24H SQ ; Start 05/24/21 at 14:15; Status UNV Active Scripts Active Doxycycline Hyclate 100 Mg Tablet 1 Tab PO BID 7 Days Hydrocodone-Apap 5-325 (Hydrocodone Bit/Acetaminophen) 1 Tab Tablet 1 Tab PO PRN Q6HRS PRN Reported Warfarin Sodium 5 Mg Tablet Unknown Dose PO DAILY Vitals/I & O Vital Sign - Last 24 Hours 05/24/21 05/24/21 05/24/21 05/24/21 11:00 12:47 13:17 15:00 Temp 98.3 98.1 98.3 98.1 Pulse 101 101 Resp 22 22 B/P (MAP) 102/58 (73) 94/65 (75) Pulse Ox 96 92 O2 Delivery Room Air Room Air Room Air Room Air 05/24/21 05/24/21 05/24/21 05/24/21 17:52 19:25 21:05 21:35 Temp 97.8 97.8 Pulse 69 Resp 20 18 20 20 B/P (MAP) 87/55 (66) Pulse Ox 93 O2 Delivery Room Air Room Air Room Air Room Air 05/24/21 05/25/21 05/25/21 05/25/21 23:17 00:52 01:25 03:11 Temp 98.0 98.4 98.0 98.4 Pulse 78 80 Resp 20 20 20 18 B/P (MAP) 99/50 (66) 90/51 (64) Pulse Ox 91 91 O2 Delivery Room Air Room Air Room Air Room Air 05/25/21 05/25/21 06:44 07:15 Temp 98.3 98.3 Pulse 75 Resp 20 18 B/P (MAP) 110/90 (97) Pulse Ox 93 O2 Delivery Room Air Room Air Intake and Output 05/24/21 05/24/21 05/25/21 15:00 23:00 07:00 Intake Total 410 ml 1140 ml Output Total 0 ml Balance 410 ml 1140 ml Justifications for Admission Other Justification KEVEN VAZQUEZ MD May 25, 2021 09:36
[2021-05-25 11:00] VITALS: BP 149/89
[2021-05-25] MEDS ORDERED: VANCOMYCIN PER PHARMACY MC PRN (13:30)
--- NOTE | 2021-05-25 13:36 | PDOC ---
[facility] [facility] PROGRESS NOTE Date of Service DOS: DATE: 05/25/21 TIME: 13:31 Chief Complaint Chief Complaint Cellulitis to left thigh - zosyn + vancomycin. Monitor renal function History of recurrent PEs Dysphonia Dog bite - s/p rabies vaccination Peripheral ulcerations -has had sores since she went swimming in one leg. She notes they are improving on IV antibiotics. 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 Discussed this action with patient she is comfortable. Will ask pharmacy also dose warfarin for history of PEs, and prescribed on discharge as well Pain management Consultation placed to general surgery for concerns of compartment syndrome; recommend closely monitoring wound. 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 She states that the dog was unfamiliar to her and unsure if it was wearing a collar. Since that time she reports worsening pain and erythema, which prompted her visit to the ED. labs admission showed WBC 14.8, CRP 68.5. She was treated with rabies vaccination, IV Rocephin, IV metronidazole, and IV vancomycin. Upon my e valuation she does note improvement in erythema, with still complains of pain. She does have a reported allergy to penicillin, but states her allergy is a rash that her mother told her she had as a child. She also notes a history of recurrent PEs and not on warfarin. Patient has been admitted for further medical management. 05/25: Some swelling at bite site no significant change in strength or erythema actually may be a little increased. No allergic reaction to Zosyn. Discussed with patient we will add vancomycin if she is not having further improvement in the next 24 hours we will consult infectious diseases. She also has multiple sores on her left lateral arms she notes she has had these since she jumped into [employer] several months ago. General surgery following. Vitals/I&O Vitals/I&O: Vital Signs Date Time Temp Pulse Resp B/P (MAP) Pulse Ox O2 Delivery O2 Flow Rate FiO2 05/25/21 11:57 18 Room Air 05/25/21 11:00 98.9 107 149/89 (109) 99 98.9 I & O 05/24/21 05/24/21 05/25/21 15:00 23:00 07:00 Intake Total 410 ml 1140 ml Output Total 0 ml Balance 410 ml 1140 ml Physical Exam General: Alert, Oriented X3, Cooperative Heart: Regular rate Lungs: Clear Abdomen: Soft, No tenderness Extremities: No clubbing, Other (left thigh with erythema, no drainage, some central faint bluish discoloration, no necrosis as of now, no fluctuance) Skin: Other (left inner/posterior thigh with erythema, induration, tenderness, central area of darker tissue, no overt eschar, noted punture wounds ) Labs Labs: Laboratory Tests Test 05/25/21 05:55 White Blood Count 8.6 x10^3/uL (4.0-11.0) Red Blood Count 3.71 x10^6/uL (3.50-5.40) Hemoglobin 11.8 g/dL (12.0-15.5) Hematocrit 35.3 % (36.0-47.0) Mean Corpuscular Volume 95 fL (79-100) Mean Corpuscular Hemoglobin 32 pg (25-35) Mean Corpuscular Hemoglobin Concent 34 g/dL (31-37) Red Cell Distribution Width 13.1 % (11.5-14.5) Platelet Count 164 x10^3/uL (140-400) Neutrophils (%) (Auto) 72 % (31-73) Lymphocytes (%) (Auto) 20 % (24-48) Monocytes (%) (Auto) 7 % (0-9) Eosinophils (%) (Auto) 1 % (0-3) Basophils (%) (Auto) 0 % (0-3) Neutrophils # (Auto) 6.2 x10^3/uL (1.8-7.7) Lymphocytes # (Auto) 1.7 x10^3/uL (1.0-4.8) Monocytes # (Auto) 0.6 x10^3/uL (0.0-1.1) Eosinophils # (Auto) 0.1 x10^3/uL (0.0-0.7) Basophils # (Auto) 0.0 x10^3/uL (0.0-0.2) Prothrombin Time 14.0 SEC (11.7-14.0) Prothromb Time International Ratio 1.1 (0.8-1.1) Sodium Level 138 mmol/L (136-145) Potassium Level 3.5 mmol/L (3.5-5.1) Chloride Level 108 mmol/L (98-107) Carbon Dioxide Level 21 mmol/L (21-32) Anion Gap 9 (6-14) Blood Urea Nitrogen 10 mg/dL (7-20) Creatinine 0.8 mg/dL (0.6-1.0) Estimated GFR (Cockcroft-Gault) 79.0 Glucose Level 75 mg/dL (70-99) Calcium Level 7.8 mg/dL (8.5-10.1) Assessment and Plan Assessmemt and Plan Problems Medical Problems: (1) Acute sepsis Status: Acute (2) Cellulitis of left thigh Status: Acute (3) Dog bite of left thigh with infection Status: Acute Comment Review of Relevant I have reviewed the following items otto (where applicable) has been applied. Medications: Current Medications Medications (Trade) Dose Ordered Sig/Emmy Route PRN Reason Start Time Stop Time Status Last Admin Dose Admin Acetaminophen/ Hydrocodone Bitart (Lortab 7.5/325) 2 tab PRN Q6HRS PRN PO SEVERE PAIN (1st Choice) 05/24/21 14:00 05/25/21 11:57 Warfarin Sodium (Coumadin) 5 mg 1X WARF ONCE PO 05/24/21 16:00 05/24/21 16:01 DC 05/24/21 19:24 Piperacillin Sod/ Tazobactam Sod 3.375 gm/Sodium Chloride 50 ml @ 100 mls/hr Q6HRS IV 05/24/21 14:30 05/25/21 11:51 Enoxaparin Sodium (Lovenox 40mg Syringe) 40 mg Q24H SQ 05/24/21 16:00 05/24/21 19:28 Justifications for Admission Other Justification JUDAH AMATO MD May 25, 2021 13:36
[2021-05-25] MEDS ORDERED: VANCOMYCIN 1.5 GM in IV NORMAL SALINE 500ML BAG 500 ML IV ONE (14:00)
[2021-05-25 14:59] VITALS: BP 98/49
[2021-05-25] MEDS ORDERED: DIPHTH,PERTUSS(ACELL),TET TOX 0.5 ML DISP.SYRIN. VAX IM ONE (16:00)
[2021-05-25] MEDS ORDERED: WARFARIN 5 MG TABLET. PO ONE (16:00)
--- NOTE | 2021-05-25 16:12 | NUR ---
Pharmacy Warfarin Dosing Note S:Pharmacy consulted to assist with anticoagulation therapy started 05/24/21 with target INR: 2 - 3 O:JAIR WALL is a 40 year old F with a h/o PE LABS: Last INR: 1.1 Last HGB: 11.8 Last HCT: 35.3 Last PLT: 164 Last dose of 5 mg given on 05/24/21 at 1730 Previous Regimen: non-compliant, stopped taking Ongoing Drug Interactions: ZOSYN A:INR of 1.1 is below desired range. Target range for this patient is: 2 - 3. P: Warfarin dose: 5 mg Today at 1600 Bridge Therapy: Enoxaparin 40 mg q24h Next INR due 05/26/21 Pharmacy anticoagulation service will continue to follow. SELVIN BATES RPH, 05/25/21 [id number]
[2021-05-25] MEDS: ENOXAPARIN 40 MG/0.4 ML SYRINGE. SQ SCH (16:29)
--- NOTE | 2021-05-25 17:00 | CONS ---
DATE OF CONSULTATION: 05/25/2021 REFERRING PHYSICIAN: Dr. De La Rosa. REASON FOR CONSULTATION: Left lower extremity dog bite with cellulitis, antibiotic management. HISTORY OF PRESENT ILLNESS: A 40-year-old female with history of tobacco use, peripheral vascular disease, PE, DVT, on Coumadin, presented to the ER on 05/23/2021 after sustaining a dog bite to the left posterior distal thigh two days prior to admission. The patient had no knowledge about the dog or his immunization status. The patient states initially discomfort was minimal, but then it started spreading with worsening pain and redness. She was febrile at 100.8, tachycardic in ER. Her white count was elevated. She denies any headache, nausea, vomiting, nasal congestion, cough, sore throat, difficulty swallowing, shortness of breath. She does have history of vocal cord surgery and has chronic hoarseness of voice. She denies any symptoms. The patient also had some superficial abrasions over the left upper extremity prior to dog bite, which are chronic. The patient was given ceftriaxone, metronidazole and vancomycin in the ER, also was initiated on rabies vaccine. The patient is currently on Zosyn. ID consultation has been requested for further evaluation and treatment. Today, the patient states her pain is a little better, though still has swelling. General Surgery was consulted and they recommended close monitoring of the wound. The patient was on doxycycline prior to admission. PAST MEDICAL HISTORY: DVT, PE. PAST SURGICAL HISTORY: The patient has undergone vocal cord surgery for cyst. FAMILY HISTORY: As per HPI. SOCIAL HISTORY: Smokes 1 pack per day. No alcohol, no drugs. Lives with family. CURRENT MEDICATIONS: Zosyn, one dose of vancomycin, rabies vaccine, also had been on vancomycin, ceftriaxone, metronidazole. Other medications reviewed in medication list. ALLERGIES: PENICILLIN MILD HIVES. Tolerates cefepime, has been tolerating Zosyn well. REVIEW OF SYSTEMS: Negative except for above in HPI. PHYSICAL EXAMINATION: VITAL SIGNS: Temperature 97.6, pulse 85, respiratory rate 20, blood pressure 98/49, oxygen saturation 96% on room air. GENERAL: Alert, oriented x 3, ambulating in the room and cooperative, pleasant, in no acute distress, nontoxic appearing. HEENT: Normocephalic, atraumatic. Anicteric. No thrush. Oral mucosa moist. NECK: Supple, no JVD. LUNGS: Clear bilaterally. HEART: S1, S2. No gallops or murmurs. ABDOMEN: Soft, nontender, nondistended. Bowel sounds present. EXTREMITIES: Left thigh has a large area of erythema on the posterior aspect with some purplish bluish discoloration spreading from the previous markings. No fluctuance. There are some dry abrasions over the left upper extremity, not infected, scabbed. No cyanosis or clubbing. DERMATOLOGIC: Warm, dry, no generalized rash except for above. NEUROLOGIC: Alert and oriented x 3, grossly nonfocal. PSYCHIATRIC: Calm and cooperative. LABORATORY DATA: WBC 8.6, was 14.8, hemoglobin 11.8, hematocrit 35.3, platelets 164. Sodium 138, potassium 3.5, chloride 108, bicarbonate 21, BUN 10, creatinine 0.8, glucose 75. Lactic acid 1.1. Procalcitonin less than 0.10, calcium 7.8. Urine test negative. UA shows negative leukocyte esterase. INR 1.1. IMAGIN. Arterial study of bilateral lower extremity shows no stenosis. 2. Femur x-ray shows no opaque foreign body, no abnormal gas noted in soft tissue, no acute osseous abnormality left femur. IMPRESSION: 1. Cellulitis, left thigh. 2. Dog bite of left thigh with infection. 3. Fever. 4. Leukocytosis. 5. History of deep venous thrombosis and pulmonary embolism. RECOMMENDATIONS: 1. Continue Zosyn. 2. Status post one dose of vancomycin today. We will start Zyvox. 3. Monitor labs and cultures. 4. Continue local wound care. 5. The patient has received rabies vaccine. The patient is unsure of tetanus vaccine. Patient is requesting tetanus vaccine now 6. Continue local wound care. 7. Elevate left lower extremity. 8. Continue supportive care. Thank you Dr. De La Rosa for consulting Infectious Disease to participate in this patient's care. If you have any questions, do not hesitate to contact me. CARLOS FIGUEROA: Saad TID: [id number] [facility]
[2021-05-25] MEDS: LINEZOLID 600 MG TABLET PO SCH (17:32)
[2021-05-25 19:30] VITALS: BP 105/79
[2021-05-25 23:27] VITALS: BP 134/78
[2021-05-26] MEDS: PIPERACILLIN/TAZOBACTAM 3.375 GM in IV NORMAL SALINE 50ML 50 ML IV SCH ×3 (00:18→12:27)
[2021-05-26 03:17] VITALS: BP 120/87
[2021-05-26] MEDS: oxyCODONE IR 5 MG TABLET PO PRN ×2 (05:56→12:34)
[2021-05-26 07:00] VITALS: BP 116/83
--- NOTE | 2021-05-26 07:05 | NUR ---
Roxicodone given per request, "Lortab making me nauseated."
[2021-05-26] MEDS: LINEZOLID 600 MG TABLET PO SCH (08:29)
--- NOTE | 2021-05-26 08:51 | PDOC ---
SURGICAL PROGRESS NOTE DATE: 05/26/21 TIME: 08:48 Subjective pain is improving ambulating less erythema ROS: No fevers, chill No SOA, cough NO chest pain, palpations Vital Signs Vital Signs Date Time Temp Pulse Resp B/P (MAP) Pulse Ox O2 Delivery O2 Flow Rate FiO2 05/26/21 07:00 98.2 83 18 116/83 (94) 90 Room Air 98.2 I&O Intake and Output 05/26/21 06:59 Intake Total 2550 ml Balance 2550 ml Intake Oral 1350 ml IV Total 1200 ml # Voids 1 General: Alert, Oriented X3, Cooperative Abdomen: Soft Skin: Other (erythema improving, central area of discoloration(bluish, no overt eschar)) Labs Laboratory Tests Test 05/25/21 05:55 05/25/21 14:45 White Blood Count 8.6 x10^3/uL (4.0-11.0) Red Blood Count 3.71 x10^6/uL (3.50-5.40) Hemoglobin 11.8 g/dL (12.0-15.5) Hematocrit 35.3 % (36.0-47.0) Mean Corpuscular Volume 95 fL (79-100) Mean Corpuscular Hemoglobin 32 pg (25-35) Mean Corpuscular Hemoglobin Concent 34 g/dL (31-37) Red Cell Distribution Width 13.1 % (11.5-14.5) Platelet Count 164 x10^3/uL (140-400) Neutrophils (%) (Auto) 72 % (31-73) Lymphocytes (%) (Auto) 20 % (24-48) Monocytes (%) (Auto) 7 % (0-9) Eosinophils (%) (Auto) 1 % (0-3) Basophils (%) (Auto) 0 % (0-3) Neutrophils # (Auto) 6.2 x10^3/uL (1.8-7.7) Lymphocytes # (Auto) 1.7 x10^3/uL (1.0-4.8) Monocytes # (Auto) 0.6 x10^3/uL (0.0-1.1) Eosinophils # (Auto) 0.1 x10^3/uL (0.0-0.7) Basophils # (Auto) 0.0 x10^3/uL (0.0-0.2) Prothrombin Time 14.0 SEC (11.7-14.0) Prothromb Time International Ratio 1.1 (0.8-1.1) Sodium Level 138 mmol/L (136-145) Potassium Level 3.5 mmol/L (3.5-5.1) Chloride Level 108 mmol/L (98-107) Carbon Dioxide Level 21 mmol/L (21-32) Anion Gap 9 (6-14) Blood Urea Nitrogen 10 mg/dL (7-20) Creatinine 0.8 mg/dL (0.6-1.0) Estimated GFR (Cockcroft-Gault) 79.0 Glucose Level 75 mg/dL (70-99) Calcium Level 7.8 mg/dL (8.5-10.1) Erythrocyte Sedimentation Rate 43 (0-25) Laboratory Tests Test 05/25/21 14:45 Erythrocyte Sedimentation Rate 43 (0-25) Problem List Problems Medical Problems: (1) Acute sepsis Status: Acute (2) Cellulitis of left thigh Status: Acute (3) Dog bite of left thigh with infection Status: Acute Assessment/Plan abx observation Justicifation of Admission Dx: Justifications for Admission: Justification of Admission Dx: Yes Comments: cellulitis, dog bite MARIA LUZ RIVERO CHIEF LIBRARIAN BRANCH May 26, 2021 08:50
[2021-05-26 09:47] LABS: PROTHROMBIN TIME PATIENT 21.8 SEC (11.7-14.0)
[2021-05-26 09:49] LABS: CALCIUM 7.8 mg/dL (8.5-10.1); CREATININE 0.7 mg/dL (0.6-1.0); GFR 92.2; POTASSIUM 3.4 mmol/L (3.5-5.1)
[2021-05-26 11:00] VITALS: BP 116/78
[2021-05-26] MEDS ORDERED: LINE600T12 PO (11:10)
[2021-05-26] MEDS ORDERED: OXYC5TAB4 PO (11:10)
[2021-05-26] MEDS ORDERED: AMOX1TAB61 PO (11:12)
--- NOTE | 2021-05-26 11:16 | PDOC ---
[facility] [facility] PROGRESS NOTE Date of Service DOS: DATE: 05/26/21 TIME: 11:12 Chief Complaint Chief Complaint Cellulitis to left thigh - zosyn + vancomycin. Monitor renal function History of recurrent PEs Dysphonia Dog bite - s/p rabies vaccination Peripheral ulcerations -has had sores since she went swimming in one leg. She notes they are improving on IV antibiotics. 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 Discussed this action with patient she is comfortable. Will ask pharmacy also dose warfarin for history of PEs, and prescribed on discharge as well Pain management Consultation placed to general surgery for concerns of compartment syndrome; recommend closely monitoring wound. 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 She states that the dog was unfamiliar to her and unsure if it was wearing a collar. Since that time she reports worsening pain and erythema, which prompted her visit to the ED. labs admission showed WBC 14.8, CRP 68.5. She was treated with rabies vaccination, IV Rocephin, IV metronidazole, and IV vancomycin. Upon my e valuation she does note improvement in erythema, with still complains of pain. She does have a reported allergy to penicillin, but states her allergy is a rash that her mother told her she had as a child. She also notes a history of recurrent PEs and not on warfarin. Patient has been admitted for further medical management. 05/25: Some swelling at bite site no significant change in strength or erythema actually may be a little increased. No allergic reaction to Zosyn. Discussed with patient we will add vancomycin if she is not having further improvement in the next 24 hours we will consult infectious diseases. She also has multiple sores on her left lateral arms she notes she has had these since she jumped into [employer] several months ago. General surgery following. 05/25: Seen by ID changed to Zyvox and Zosyn. Patient feels swelling is improved no neurologic symptoms no numbness or tingling. She is asking if she can be discharged on oral meds. Plan for discharge on Augmentin and Zyvox pain me dication and outpatient follow-up Vitals/I&O Vitals/I&O: Vital Signs Date Time Temp Pulse Resp B/P (MAP) Pulse Ox O2 Delivery O2 Flow Rate FiO2 05/26/21 07:00 98.2 83 18 116/83 (94) 90 Room Air 98.2 I & O 05/25/21 05/25/21 05/26/21 15:00 23:00 07:00 Intake Total 690 ml 1510 ml 350 ml Balance 690 ml 1510 ml 350 ml Physical Exam General: Alert, Oriented X3, Cooperative Heart: Regular rate Lungs: Clear Abdomen: Soft Extremities: No clubbing, Other (left thigh with erythema, no drainage, some central faint bluish discoloration, no necrosis as of now, no fluctuance) Skin: Other (erythema improving, central area of discoloration(bluish, no overt eschar)) Labs Labs: Laboratory Tests Test 05/25/21 14:45 05/26/21 08:55 Erythrocyte Sedimentation Rate 43 (0-25) Prothrombin Time 21.8 SEC (11.7-14.0) Prothromb Time International Ratio 2.0 (0.8-1.1) Sodium Level 137 mmol/L (136-145) Potassium Level 3.4 mmol/L (3.5-5.1) Chloride Level 107 mmol/L (98-107) Carbon Dioxide Level 23 mmol/L (21-32) Anion Gap 7 (6-14) Blood Urea Nitrogen 7 mg/dL (7-20) Creatinine 0.7 mg/dL (0.6-1.0) Estimated GFR (Cockcroft-Gault) 92.2 Glucose Level 89 mg/dL (70-99) Calcium Level 7.8 mg/dL (8.5-10.1) Assessment and Plan Assessmemt and Plan Problems Medical Problems: (1) Acute sepsis Status: Acute (2) Cellulitis of left thigh Status: Acute (3) Dog bite of left thigh with infection Status: Acute Comment Review of Relevant I have reviewed the following items otto (where applicable) has been applied. Medications: Current Medications Medications (Trade) Dose Ordered Sig/Emmy Route PRN Reason Start Time Stop Time Status Last Admin Dose Admin Warfarin Sodium (Coumadin) 5 mg 1X WARF ONCE PO 05/25/21 16:00 05/25/21 16:01 DC 05/25/21 16:37 Linezolid (Zyvox) 600 mg BID PO 05/25/21 17:00 05/26/21 08:29 Diphtheria/ Tetanus/Acell Pertussis (Boostrix) 0.5 ml ONCE ONCE VAX IM 05/25/21 16:00 05/25/21 16:01 DC 05/25/21 16:29 Justifications for Admission Other Justification JUDAH AMATO MD May 26, 2021 11:16
--- NOTE | 2021-05-26 11:19 | PDOC3 ---
Discharge Summary Visit Information Date of Admission: May 23, 2021 Date of Discharge: May 26, 2021 Admitting Diagnosis: Dog bite, left thigh cellulitis Final Diagnosis Problems Medical Problems: (1) Acute sepsis Status: Acute (2) Cellulitis of left thigh Status: Acute (3) Dog bite of left thigh with infection Status: Acute Brief Hospital Course Allergies Allergies Coded Allergies Type Severity Reaction Last Updated Verified Penicillins Allergy Mild HIVES, TOLERATES CEFEPIME 05/24/21 Yes Vital Signs Vital Signs Date Time Temp Pulse Resp B/P (MAP) Pulse Ox O2 Delivery O2 Flow Rate FiO2 05/26/21 07:00 98.2 83 18 116/83 (94) 90 Room Air 98.2 Lab Results Laboratory Tests Test 05/25/21 05:55 05/25/21 14:45 05/26/21 08:55 White Blood Count 8.6 x10^3/uL (4.0-11.0) Red Blood Count 3.71 x10^6/uL (3.50-5.40) Hemoglobin 11.8 g/dL (12.0-15.5) Hematocrit 35.3 % (36.0-47.0) Mean Corpuscular Volume 95 fL (79-100) Mean Corpuscular Hemoglobin 32 pg (25-35) Mean Corpuscular Hemoglobin Concent 34 g/dL (31-37) Red Cell Distribution Width 13.1 % (11.5-14.5) Platelet Count 164 x10^3/uL (140-400) Neutrophils (%) (Auto) 72 % (31-73) Lymphocytes (%) (Auto) 20 % (24-48) Monocytes (%) (Auto) 7 % (0-9) Eosinophils (%) (Auto) 1 % (0-3) Basophils (%) (Auto) 0 % (0-3) Neutrophils # (Auto) 6.2 x10^3/uL (1.8-7.7) Lymphocytes # (Auto) 1.7 x10^3/uL (1.0-4.8) Monocytes # (Auto) 0.6 x10^3/uL (0.0-1.1) Eosinophils # (Auto) 0.1 x10^3/uL (0.0-0.7) Basophils # (Auto) 0.0 x10^3/uL (0.0-0.2) Prothrombin Time 14.0 SEC (11.7-14.0) 21.8 SEC (11.7-14.0) Prothromb Time International Ratio 1.1 (0.8-1.1) 2.0 (0.8-1.1) Sodium Level 138 mmol/L (136-145) 137 mmol/L (136-145) Potassium Level 3.5 mmol/L (3.5-5.1) 3.4 mmol/L (3.5-5.1) Chloride Level 108 mmol/L (98-107) 107 mmol/L (98-107) Carbon Dioxide Level 21 mmol/L (21-32) 23 mmol/L (21-32) Anion Gap 9 (6-14) 7 (6-14) Blood Urea Nitrogen 10 mg/dL (7-20) 7 mg/dL (7-20) Creatinine 0.8 mg/dL (0.6-1.0) 0.7 mg/dL (0.6-1.0) Estimated GFR (Cockcroft-Gault) 79.0 92.2 Glucose Level 75 mg/dL (70-99) 89 mg/dL (70-99) Calcium Level 7.8 mg/dL (8.5-10.1) 7.8 mg/dL (8.5-10.1) Erythrocyte Sedimentation Rate 43 (0-25) Laboratory Tests Test 05/25/21 14:45 05/26/21 08:55 Erythrocyte Sedimentation Rate 43 (0-25) Prothrombin Time 21.8 SEC (11.7-14.0) Prothromb Time International Ratio 2.0 (0.8-1.1) Sodium Level 137 mmol/L (136-145) Potassium Level 3.4 mmol/L (3.5-5.1) Chloride Level 107 mmol/L (98-107) Carbon Dioxide Level 23 mmol/L (21-32) Anion Gap 7 (6-14) Blood Urea Nitrogen 7 mg/dL (7-20) Creatinine 0.7 mg/dL (0.6-1.0) Estimated GFR (Cockcroft-Gault) 92.2 Glucose Level 89 mg/dL (70-99) Calcium Level 7.8 mg/dL (8.5-10.1) Brief Hospital Course Patient is a 40-year-old female with past medical history PVD, recurrent PEs, and 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 She states that the dog was unfamiliar to her and unsure if it was wearing a collar. Since that time she reports worsening pain and erythema, which prompted her visit to the ED. labs admission showed WBC 14.8, CRP 68.5. She was treated with rabies vaccination, IV Rocephin, IV metronidazole, and IV vancomycin. Upon my evaluation she does note improvement in erythema, with still complains of pain. She does have a reported allergy to penicillin, but states her allergy is a rash that her mother told her she had as a child. She also notes a history of recurrent PEs and not on warfarin. Patient has been admitted for further medical management. Consultation placed to general surgery for concerns of compartment syndrome; recommend closely monitoring wound. 05/25: Some swelling at bite site no significant change in strength or erythema actually may be a little increased. No allergic reaction to Zosyn. Discussed with patient we will add vancomycin if she is not having further improvement in the next 24 hours we will consult infectious diseases. She also has multiple sores on her left lateral arms she notes she has had these since she jumped into [place] several months ago. General surgery following. ID consulted for antibiotic recommendations 05/25: Seen by ID changed to Zyvox and Zosyn. Patient feels swelling is improved no neurologic symptoms no numbness or tingling. She is asking if she can be discharged on oral meds. Plan for discharge on Augmentin and Zyvox pain medication and outpatient follow-up Ultimately patient was seen and treated for cellulitis related to a dog bite had a recent tetanus vaccines and no neurologic problems required IV Zosyn and vancomycin was transition to oral Zyvox and Augmentin on discharge. Problem list: Cellulitis to left thigh - zosyn + vancomycin. Monitor renal function. Augmentin and Zyvox on DC History of recurrent PEs Dysphonia Dog bite - s/p rabies vaccination Peripheral ulcerations -has had sores since she went swimming in one leg. She notes they are improving on IV antibiotics. 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 - she is a drug addiction counselor now Greater than 30 minutes spent on discharge home with self-care Discharge Information Condition at Discharge: Improved Follow Up: Weeks Disposition/Orders: D/C to Home Scheduled Amoxicillin/Potassium Clav (Augmentin 875-125 Tablet) 1 Each Tablet, 1 TAB PO BID for Cellulitis for 10 Days, #20 Ref 0 Prescribed by: JUDAH AMATO MD on 05/26/21 1112 Linezolid (Zyvox) 600 Mg Tablet, 600 MG PO BID for Cellulitis for 10 Days, #20 Prescribed by: JUDAH AMATO MD on 05/26/21 1110 Warfarin Sodium (Warfarin Sodium) 5 Mg Tablet, Unknown Dose PO DAILY, (Reported) Entered as Reported by: Ben Kim RN on 12/08/160 Scheduled PRN Oxycodone Hcl (Oxycodone Hcl Immed.release ) 5 Mg Tablet, 5 MG PO PRN Q6HRS PRN for BREAKTHROUGH PAIN for 6 Days, #24 Prescribed by: JUDAH AMATO MD on 05/26/21 1111 Discontinued Medications Doxycycline Hyclate (Doxycycline Hyclate) 100 Mg Tablet, 1 TAB PO BID for 7 Days, #14 Prescribed by: SELVIN LOVE DO on 12/28/20 0823 Hydrocodone Bit/Acetaminophen (Hydrocodone-Apap 5-325 ) 1 Tab Tablet, 1 TAB PO PRN Q6HRS PRN for PAIN, #15 Ref 0 Prescribed by: SELVIN LOVE DO on 12/28/20 0823 Justicifation of Admission Dx: Justifications for Admission: Justification of Admission Dx: Yes JUDAH AMATO MD May 26, 2021 11:19
[2021-05-26] MEDS ORDERED: POTASSIUM CHLORIDE 20 MEQ TABLET.ER. PO ONE (12:45)
--- NOTE | 2021-05-26 13:25 | NUR ---
Discharge instructions given. Answered questions and concerns. Verbalized understanding. Pain med given prior to discharge. Applied ABD dressing and stockinette on left upper thigh due to drainage. Extra supplies given. Discharged home accompanied by spouse. Escorted out by w/c.
--- NOTE | 2021-05-26 15:01 | PDOC ---
Infectious Disease Note Vital Signs: Vital Signs Vital Signs Date Time Temp Pulse Resp B/P (MAP) Pulse Ox O2 Delivery O2 Flow Rate FiO2 05/26/21 12:34 Room Air 05/26/21 11:00 97.8 76 18 116/78 (91) 93 97.8 Physical Exam: PHYSICAL EXAM Medications: Inpatient Meds: Medications reviewed. Labs: Lab Laboratory Tests Test 05/26/21 08:55 Prothrombin Time 21.8 SEC (11.7-14.0) Prothromb Time International Ratio 2.0 (0.8-1.1) Sodium Level 137 mmol/L (136-145) Potassium Level 3.4 mmol/L (3.5-5.1) Chloride Level 107 mmol/L (98-107) Carbon Dioxide Level 23 mmol/L (21-32) Anion Gap 7 (6-14) Blood Urea Nitrogen 7 mg/dL (7-20) Creatinine 0.7 mg/dL (0.6-1.0) Estimated GFR (Cockcroft-Gault) 92.2 Glucose Level 89 mg/dL (70-99) Calcium Level 7.8 mg/dL (8.5-10.1) Objective: Assessment: 1. Cellulitis, left thigh. 2. Dog bite of left thigh with infection. 3. Fever. 4. Leukocytosis. 5. History of deep venous thrombosis and pulmonary embolism. Plan: Plan of Care PETERSON GALO MD May 26, 2021 15:01
== END 2021-05-26 13:25 | disposition home or self-care (01) | DRG 872 ==
LOC: ER 18:13 → 4 NORTH 22:29
PROVIDERS: ADMIT Internal Medicine; ATTEND Internal Medicine
DX: A41.9 Sepsis, unspecified organism (principal); L03.116 Cellulitis of left lower limb; S71.152A Open bite, left thigh, initial encounter; F15.11 Other stimulant abuse, in remission; F17.210 Nicotine dependence, cigarettes, uncomplicated; I73.9 Peripheral vascular disease, unspecified; S81.852A Open bite, left lower leg, initial encounter; W54.0XXA Bitten by dog, initial encounter; Z23 Encounter for immunization; Z82.49 Family history of ischemic heart disease and other diseases of the circulatory system; Z86.711 Personal history of pulmonary embolism; Z86.718 Personal history of other venous thrombosis and embolism; Z88.0 Allergy status to penicillin
CPT/HCPCS: 36415; 73552; 80048; 80053; 80307; 81001; 81025; 83605; 84145; 85007; 85025; 85610; 85651; 85730; 86140; 87040; 90375; 90471; 90675; 90715; 93923; 96365; 96366; 96368; 96375; 96376; 99406; G0480; J0696; J1650; J1885; J2270; J2405; J2543; J3370; J3490; J7030; J7040; 99285-25; G0378

== ENCOUNTER 2021-05-27 08:47 | Emergency (ER) | payer OTHER ==
[~2021-05-27] VITALS: Ht 160 cm; Wt 86.6 kg
[~2021-05-27 08:47] MED LIST changes: +AMOX1TAB61 PO; +LINE600T12 PO; +OXYC5TAB4 PO
[2021-05-27 08:57] VITALS: BP 128/78
[2021-05-27] MEDS ORDERED: RABIES VIRUS VACC PF 2.5 UNIT / 1 ML VIAL. VAX IM ONE (09:15)
--- NOTE | 2021-05-27 09:31 | PHYS DOC ---
Past Medical History Past Medical History: Seizure Additional Past Medical Histor: BLOOD CLOTS ,DVT'S AND PE'S,CELLULITIS Past Surgical History: Other Additional Past Surgical Histo: CYST REMOVAL FROM VOICE BOX WITH REMOVAL OF VOCAL CORDS Smoking Status: Current Every Day Smoker Additional Information: < 1 PPD Alcohol Use: None Drug Use: None General Adult EDM: Chief Complaint: OTHER COMPLAINTS HPI: HPI: Patient is a 40 year old female who presents with patient was discharged from the hospital today after having significant dog bites and cellulitis to her body. Upon discharge yesterday she was supposed to get her day 3 rabies vaccine. However pharmacy overlooked it and patient was called and she came in this morning to get her day 3 rabies vaccine. Patient has no other complaints. Review of Systems: Review of Systems: Constitutional: Denies fever or chills. [] Eyes: Denies change in visual acuity. [] HENT: Denies nasal congestion or sore throat. [] Respiratory: Denies cough or shortness of breath. [] Cardiovascular: Denies chest pain or edema. [] GI: Denies abdominal pain, nausea, vomiting, bloody stools or diarrhea. [] : Denies dysuria. [] Musculoskeletal: Denies back pain or joint pain. [] Integument: Denies rash. + Rabies vaccine for dog bites [] Neurologic: Denies headache, focal weakness or sensory changes. [] Endocrine: Denies polyuria or polydipsia. [] Lymphatic: Denies swollen glands. [] Psychiatric: Denies depression or anxiety. [] Heart Score: C/O Chest Pain: No Current Medications: Current Medications Medications (Trade) Dose Ordered Sig/Emmy Start Time Stop Time Status Last Admin Dose Admin Rabies Vaccine (Imovax,Rabavert Rabies 2.5 Unit / ml) 1 ml ONCE ONCE 05/27/21 09:15 05/27/21 09:16 DC Allergies: Allergies: Allergies Coded Allergies Type Severity Reaction Last Updated Verified No Known Drug Allergies 05/27/21 No Physical Exam: PE: Constitutional: Well developed, well nourished, no acute distress, non-toxic appearance. [] HENT: Normocephalic, atraumatic, bilateral external ears normal, oropharynx moist, no oral exudates, nose normal. [] Eyes: PERRLA, EOMI, conjunctiva normal, no discharge. [] Neck: Normal range of motion, no tenderness, supple, no stridor. [] Cardiovascular:Heart rate regular rhythm, no murmur [] Lungs & Thorax: Bilateral breath sounds clear to auscultation [] Abdomen: Bowel sounds normal, soft, no tenderness, no masses, no pulsatile masses. [] Skin: Warm, dry, no erythema, no rash. [] Back: No tenderness, no CVA tenderness. [] Extremities: No tenderness, no cyanosis, no clubbing, ROM intact, no edema. [] Neurologic: Alert and oriented X 3, normal motor function, normal sensory function, no focal deficits noted. [] Psychologic: Affect normal, judgement normal, mood normal. [] Normal physical exam Current Patient Data: Vital Signs: Vital Signs Date Time Temp Pulse Resp B/P (MAP) Pulse Ox O2 Delivery O2 Flow Rate FiO2 05/27/21 08:57 97.8 77 20 128/78 (95) 95 Room Air 97.8 EKG: EKG: [] Radiology/Procedures: Radiology/Procedures: [] Course & Med Decision Making: Course & Med Decision Making Pertinent Labs and Imaging studies reviewed. (See chart for details) See HPI. Alert and oriented x4. Ambulatory with steady gait. Speaks in full clear sentences. Afebrile. Patient has no complaints at this time. Patient is getting her day 3 rabies vaccine. We will put in orders for day 7 and day 14 so that patient can come in as a outpatient to get her vaccines. [] Dragon Disclaimer: Dragon Disclaimer: This electronic medical record was generated, in whole or in part, using a voice recognition dictation system. Departure Departure Impression: Primary Impression: Need for prophylactic vaccination against rabies Disposition: HOME / SELF CARE / HOMELESS Condition: STABLE Referrals: NO PCP (PCP) Patient Instructions: Rabies Vaccine suspension for injection Additional Instructions: Return as an outpatient on May 31 and June 07 for rabies vaccination. Follow-up with scheduled doctors appointments. Continue taking all your medications. AMBER TATE APRN May 27, 2021 09:31
[2021-05-31] MEDS ORDERED: RABIES VIRUS VACC PF 2.5 UNIT / 1 ML VIAL. VAX IM ONE
[2021-06-07] MEDS ORDERED: RABIES VIRUS VACC PF 2.5 UNIT / 1 ML VIAL. VAX IM ONE
== END 2021-05-27 09:38 | disposition home or self-care (01) ==
LOC: ER 08:47
DX: Z23 Encounter for immunization (principal); F17.200 Nicotine dependence, unspecified, uncomplicated
CPT/HCPCS: 90471; 90675; 99283

== ENCOUNTER 2021-05-31 16:53 | Emergency (ER) | payer OTHER ==
[~2021-05-31] VITALS: Ht 160 cm; Wt 85.6 kg
[2021-05-31 17:17] VITALS: BP 154/85
[2021-05-31] MEDS ORDERED: RABIES IMMUNE GLOBULIN PF 300 UNIT / 1 ML VIAL. VAX IM ONE (17:45)
--- NOTE | 2021-05-31 17:56 | PHYS DOC ---
Past Medical History Past Medical History: Seizure Additional Past Medical Histor: BLOOD CLOTS ,DVT'S AND PE'S,CELLULITIS Past Surgical History: Other Additional Past Surgical Histo: CYST REMOVAL FROM VOICE BOX WITH REMOVAL OF VOCAL CORDS Smoking Status: Current Every Day Smoker Additional Information: 0.5 PPD Alcohol Use: None Drug Use: None General Adult EDM: Chief Complaint: OTHER COMPLAINTS HPI: HPI: Patient is a 40 year old female patient who presents to the ED today to receive a rabies vaccine for dog bite she sustained around May 22, 2021. She states she is currently on antibiotics. Review of Systems: Review of Systems: Constitutional: Denies fever or chills. [] Musculoskeletal: Denies back pain or joint pain. [] Integument: Need for rabies vaccine, dog bite to the left lower extremity Neurologic: Denies headache, focal weakness or sensory changes. [] [] Psychiatric: Denies depression or anxiety. [] Heart Score: C/O Chest Pain: No Risk Factors: Risk Factors: DM, Current or recent (<one month) smoker, HTN, HLP, family history of CAD, obesity. Risk Scores: Score 0 - 3: 2.5% MACE over next 6 weeks - Discharge Home Score 4 - 6: 20.3% MACE over next 6 weeks - Admit for Clinical Observation Score 7 - 10: 72.7% MACE over next 6 weeks - Early Invasive Strategies Current Medications: Current Medications Medications (Trade) Dose Ordered Sig/Emmy Start Time Stop Time Status Last Admin Dose Admin Rabies Immune Globulin (HyperRAB 300 UNIT/ML VIAL) 1 ml ONCE ONCE 05/31/21 17:45 05/31/21 17:46 Cancel Rabies Vaccine (Imovax,Rabavert Rabies 2.5 Unit / ml) 1 ml ONCE ONCE 05/31/21 18:15 05/31/21 18:16 Allergies: Allergies: Allergies Coded Allergies Type Severity Reaction Last Updated Verified No Known Drug Allergies 05/27/21 No Physical Exam: PE: Constitutional: Well developed, well nourished, no acute distress, non-toxic appearance. [] Skin: Left dorsal posterior and of the thigh with open wounds from dog bites. The middle of the wound seem to be forming eschar tissue patient states this has been present since she was discharged from the hospital. She states there is t remendous improvement on cellulitis on the wound. Neurovascular exam is intact to the left lower extremity. Back: No tenderness, no CVA tenderness. [] Extremities: No tenderness, no cyanosis, no clubbing, ROM intact, no edema. [] Neurologic: Alert and oriented X 3, normal motor function, normal sensory function, no focal deficits noted. [] Psychologic: Affect normal, judgement normal, mood normal. [] Current Patient Data: Vital Signs: Vital Signs Date Time Temp Pulse Resp B/P (MAP) Pulse Ox O2 Delivery O2 Flow Rate FiO2 05/31/21 17:17 97.7 85 17 154/85 (108) 97 Room Air 97.7 EKG: EKG: [] Radiology/Procedures: Radiology/Procedures: [] Course & Med Decision Making: Course & Med Decision Making Pertinent Labs and Imaging studies reviewed. (See chart for details) This a 40-year-old female patient presented to the ED today for rabies vaccine for dog bite she sustained last week. She is currently on antibiotics. Vaccine was given in the ED. The wound she states is improving, there is some eschar tissue noted during exam but she states she was discharged from the hospital with the eschar tissue. I highly recommended she follows up with the wound clinic at [facility] tomorrow. Her orders for her last rabies vaccine was faxed as well as tubed to outpatient. She was also given an order for the vaccine to take to outpatient when she returns on 06/07/2021 Abimael Disclaimer: Abimael Disclaimer: This electronic medical record was generated, in whole or in part, using a voice recognition dictation system. Departure Departure Impression: Primary Impression: Need for prophylactic vaccination against rabies Additional Impression: Dog bite of left thigh with infection Qualified Codes: S71.152D - Open bite, left thigh, subsequent encounter; L08.9 - Local infection of the skin and subcutaneous tissue, unspecified; W54.0XXD - Bitten by dog, subsequent encounter Disposition: 01 HOME / SELF CARE / HOMELESS Condition: STABLE Referrals: NO PCP (PCP) Please follow-up with the [facility] wound clinic Their phone number is [phone]. Call them tomorrow and set up an appointment. Follow-up with outpatient on 06/07/2021 for your last rabies vacci Patient Instructions: Rabies Vaccine suspension for injection, Wound Check Additional Instructions: You were given rabies vaccine today. Your next dose is 06/07/2021. Please go through [facility] outpatient for this vaccine. Ensure you come before 3 PM. If you come after 4 PM you have to use the emergency room Please follow-up with [facility] wound clinic for management of your dog bite. Call them tomorrow and set up a follow-up appointment MEKA RIZVI APRN May 31, 2021 17:56
[2021-05-31] MEDS ORDERED: RABIES VIRUS VACC PF 2.5 UNIT / 1 ML VIAL. VAX IM ONE (18:15)
== END 2021-05-31 18:09 | disposition home or self-care (01) ==
LOC: ER 16:53
DX: S71.152D Open bite, left thigh, subsequent encounter (principal); L08.9 Local infection of the skin and subcutaneous tissue, unspecified; F17.200 Nicotine dependence, unspecified, uncomplicated; W54.0XXD Bitten by dog, subsequent encounter
CPT/HCPCS: 90471; 90675; 99283-25